=== PATIENT | male | born 1970 | race African-American/Black ===

== ENCOUNTER 2017-01-24 10:19 | Emergency (ER) | payer SELFPAY ==
[2017-01-24] MEDS ORDERED: CLONIDINE HCL 0.2 MG TABLET PO ONE (11:01)
--- NOTE | 2017-01-24 11:03 | ER Document Report ---
ED Medical Screen (RME) - General Mode of Arrival: Ambulatory Information source: Patient TRAVEL OUTSIDE OF THE [place] IN LAST 30 DAYS: No - HPI Patient complains to provider of: L arm pain Onset: This morning - pt with onset of L arm pain today (shoulder and elbow) without h/o trauma. Also BP elevated in traige <DAVID MCPHERSON - Last Filed: 01/24/17 11:02> <MONAE GUALLPA - Last Filed: 01/24/17 12:32> - General Chief Complaint: Arm Pain Stated Complaint: LEFT SHOULDER PAIN Time Seen by Provider: 01/24/17 11:00 - Related Data Allergies/Adverse Reactions: No Known Allergies Allergy (Verified 01/24/17 10:23) Past Medical History - Social History Chew tobacco use (# tins/day): No Frequency of alcohol use: 6 pk weekly Drug Abuse: None - Past Medical History Cardiac Medical History: Reports: Hx Hypertension - out of meds Renal/ Medical History: Denies: Hx Peritoneal Dialysis Musculoskeltal Medical History: Reports Hx Gout - Immunizations Immunizations up to date: No Hx Diphtheria, Pertussis, Tetanus Vaccination: No - <5 yrs <DAVID MCPHERSON - Last Filed: 01/24/17 11:02> - General Information source: Patient <MONAE GUALLPA - Last Filed: 01/24/17 12:32> Course - Laboratory Result Diagrams: 01/24/17 11:20 01/24/17 11:20 - EKG Interpretation by [facility] EKG shows normal: Sinus rhythm <MONAE GUALLPA - Last Filed: 01/24/17 12:32> - Vital Signs Vital signs: Temp Pulse Resp BP Pulse Ox 98.1 F 81 16 170/110 H 97 01/24/17 10:24 01/24/17 10:59 01/24/17 10:24 01/24/17 10:59 01/24/17 10:59 - Laboratory Laboratory results interpreted by me: 01/24/17 01/24/17 11:20 11:20 Hgb 13.2 L Creatine Kinase 230 H
[2017-01-24 11:38] LABS: ABSOLUTE BASOPHILS # (AUTO) 0.1 10^3/uL (0.0-0.2); ABSOLUTE EOSINOPHILS # (AUTO) 0.3 10^3/uL (0.0-0.6); ABSOLUTE LYMPHOCYTES (AUTO) 2.5 10^3/uL (0.5-4.7); ABSOLUTE MONOCYTES (AUTO) 0.6 10^3/uL (0.1-1.4); ABSOLUTE NEUT (AUTO) 4.9 10^3/uL (1.7-8.2); BASOPHILS % (AUTO) 1.3 % (0-2); HEMATOCRIT 38.5 % (37.9-51.0); HEMOGLOBIN 13.2 g/dL (13.5-17.0); HGB HCT DIFFERENCE 1.1; LYMPHOCYTES % (AUTO) 30.1 % (13-45); MEAN CORPUSCULAR HEMOGLOBIN 29.9 pg (27.0-33.4); MEAN CORPUSCULAR HGB CONC 34.3 g/dL (32.0-36.0); MEAN CORPUSCULAR VOLUME 87 fl (80-97); MONOCYTES % (AUTO) 6.8 % (3-13); RED BLOOD COUNT 4.41 10^6/uL (4.35-5.55); RED CELL DISTRIBUTION WIDTH 13.3 % (11.5-14.0); SEGMENTED NEUTROPHILS % (AUTO) 58.8 % (42-78); WHITE BLOOD COUNT 8.3 10^3/uL (4.0-10.5)
[2017-01-24 12:01] LABS: ALANINE AMINOTRANSFERASE 41 U/L (21-72); ALBUMIN 4.1 g/dL (3.5-5.0); ALKALINE PHOSPHATASE 102 U/L (38-126); ANION GAP 16 (5-19); ASPARTATE AMINO TRANSFERASE 32 U/L (17-59); BILIRUBIN,DIRECT 0.3 mg/dL (0.0-0.4); BILIRUBIN,TOTAL 0.4 mg/dL (0.2-1.3); BLOOD UREA NITROGEN 14 mg/dL (7-20); CALCIUM 9.9 mg/dL (8.4-10.2); CARBON DIOXIDE 23 mmol/L (22-30); CHLORIDE 106 mmol/L (98-107); CREATINE KINASE 230 U/L (55-170); CREATININE RESULT 1.01 mg/dL (0.52-1.25); GLUCOSE 82 mg/dL (75-110); POTASSIUM 3.6 mmol/L (3.6-5.0); SODIUM 144.8 mmol/L (137-145); TOTAL PROTEIN 7.5 g/dL (6.3-8.2)
[2017-01-24 12:13] LABS: CREATINE KINASE MB 1.05 ng/mL (<4.55)
[2017-01-24 12:14] LABS: TROPONIN I < 0.012 ng/mL
[2017-01-24] MEDS ORDERED: OXYCODONE-ACETAMINOPHEN 5-325 MG TABLET PO ONE (12:24)
--- NOTE | 2017-01-24 12:51 | ER Document Report ---
ED General - General Chief Complaint: Arm Pain Stated Complaint: LEFT SHOULDER PAIN Time Seen by Provider: 01/24/17 11:00 Mode of Arrival: Ambulatory Notes: Patient presents to emergency department with complaints of left elbow pain and swelling with pain that radiates up to his shoulder. Patient reports pain started approximately 2 weeks ago. Denies trauma. He reports he noted pain radiating up to his shoulder approximately 1-1/2 weeks ago. Reports history of gout. Denies other symptoms such as fever vomiting diarrhea. Denies chest pain shortness of breath. 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 Has been having to use his right hand more. TRAVEL OUTSIDE OF THE [place] IN LAST 30 DAYS: No - HPI Onset: Other Onset/Duration: Persistent Quality of pain: Achy Severity: Moderate Pain Level: 3 Associated symptoms: None Exacerbated by: Movement Relieved by: Denies Similar symptoms previously: No Recently seen / treated by doctor: No - Related Data Allergies/Adverse Reactions: No Known Allergies Allergy (Verified 01/24/17 10:23) Past Medical History - General Information source: Patient - Social History Smoking Status: Current Every Day Smoker Chew tobacco use (# tins/day): No Frequency of alcohol use: 6 pk weekly Drug Abuse: None Occupation: [employer] Lives with: Family Family History: None Patient has suicidal ideation: No Patient has homicidal ideation: No - Past Medical History Cardiac Medical History: Reports: Hx Hypertension - out of meds Renal/ Medical History: Denies: Hx Peritoneal Dialysis Musculoskeltal Medical History: Reports Hx Gout Surgical Hx: Negative - Immunizations Immunizations up to date: No Hx Diphtheria, Pertussis, Tetanus Vaccination: No - <5 yrs Review of Systems - Review of Systems Notes: Review HPI for review of systems., All other systems negative Physical Exam - Vital signs Vitals: Temp Pulse Resp BP Pulse Ox 98.1 F 90 16 175/104 H 96 01/24/17 10:24 01/24/17 10:24 01/24/17 10:24 01/24/17 10:24 01/24/17 10:24 - Notes Notes: PHYSICAL EXAMINATION: GENERAL: Well-appearing and in no acute distress HEAD: Atraumatic, normocephalic. EYES: Pupils equal round and reactive to light, extraocular movements intact, sclera anicteric, conjunctiva are normal. ENT: nares patent, oropharynx clear without exudates. Moist mucous membranes. NECK: Normal range of motion, supple without lymphadenopathy LUNGS: CTAB and equal. No wheezes rales or rhonchi. HEART: Regular rate and rhythm without murmurs ABDOMEN: Soft, no tenderness. No guarding, no rebound EXTREMITIES: c/o pain when raising his left arm above his shoulder, c/o left elbow ttp, elbow slightly swollen, slight erythema, no warmth, no pustule NEUROLOGICAL: Cranial nerves grossly intact. Normal sensory/motor exams. PSYCH: Normal mood, normal affect. SKIN: Warm, Dry, normal turgor, no rashes or lesions noted Course - Re-evaluation Re-evalutation: 01/24/17 12:54 Labs unremarkable patient is not having any type of chest pain or shortness of breath EKG shows sinus rhythm. Will do elbow xray and provide pain medication. Recheck BP. Consulted dr pryor per [facility] guidelines 01/24/17 13:37 X-ray notes elbow effusion, pt instructed on effusion History of gout. Will treat conservatively patient instructed on meds and to return for signs or symptoms of septic joint patient was educated on this. - Vital Signs Vital signs: Temp Pulse Resp BP Pulse Ox 97.8 F 64 16 152/103 H 100 01/24/17 13:36 01/24/17 13:36 01/24/17 10:24 01/24/17 13:36 01/24/17 13:36 - Laboratory Result Diagrams: 01/24/17 11:20 01/24/17 11:20 Laboratory results interpreted by me: 01/24/17 01/24/17 11:20 11:20 Hgb 13.2 L Creatine Kinase 230 H - Diagnostic Test Radiology reviewed: Image reviewed, Reports reviewed - Diagnostic report text EXAM DESCRIPTION: ELBOW LEFT OVER 2 VIEWS COMPLETED DATE/TIME: 01/24/2017 12: 53 pm REASON FOR STUDY: elbow pain COMPARISON: None. NUMBER OF VIEWS: Four views. TECHNIQUE: AP, lateral, and both oblique radiographic images acquired of the left elbow. LIMITATIONS: None. FINDINGS: MINERALIZATION: Normal. BONES: No acute fracture or dislocation. No worrisome bone lesions. JOINT: Mild elevation of the ventral and dorsal fat pads worrisome for elbow joint effusion SOFT TISSUES: There is diffuse dorsal soft tissue swelling over the elbow without radiopaque foreign body or soft tissue gas OTHER: No other significant finding. IMPRESSION: No fracture Small elbow joint effusion Diffuse dorsal soft tissue swelling without radiopaque foreign body or soft tissue gas Procedures - Immobilization Left Elbow Immobilizer type: Sling Performed by: DANIELLA escoto Post-Proc Neuro Vasc Exam: Unchanged from pre-exam Discharge - Discharge Clinical Impression: Pain in left elbow, Effusion of elbow joint, left, History of gout Condition: Stable Disposition: HOME, SELF-CARE Instructions: Elbow Effusion ([facility]), Oral Narcotic Medication ([facility]), Sling as Treatment ([facility]), Anti-Inflammatory Medication ([facility]) Additional Instructions: *You have been evaluated for elbow pain, elbow effusion, elevated blood pressure reading, history of gout *Monitor your elbow for signs of infection, increased pain, redness, swelling *Maintain sling for three days *Rest/Ice/Elevate *Follow up with your primary care provider for evaluation within one week *Follow up with orthopedics within one week-call for an appointment *Take medication as prescribed *Return to ED for worsening condition, changes, needs Monitor your blood pressure. Your blood pressure was elevated today. This may be because you were anxious, in pain or because you need medication. It is important to follow up with your primary care provider for full evaluation. Prescriptions: Indomethacin [Indocin 50 mg Capsule] 50 mg PO TID #30 capsule Oxycodone HCl/Acetaminophen [Percocet 5-325 mg Tablet] 1 - 2 tab PO ASDIR PRN # 15 tablet PRN Reason: Forms: Elevated Blood Pressure, Return to Work
--- NOTE | 2017-01-24 13:20 | RADIOLOGY REPORT (SQ) ---
EXAM DESCRIPTION: ELBOW LEFT OVER 2 VIEWS COMPLETED DATE/TIME: 01/24/2017 12:53 pm REASON FOR STUDY: elbow pain COMPARISON: None. NUMBER OF VIEWS: Four views. TECHNIQUE: AP, lateral, and both oblique radiographic images acquired of the left elbow. LIMITATIONS: None. FINDINGS: MINERALIZATION: Normal. BONES: No acute fracture or dislocation. No worrisome bone lesions. JOINT: Mild elevation of the ventral and dorsal fat pads worrisome for elbow joint effusion SOFT TISSUES: There is diffuse dorsal soft tissue swelling over the elbow without radiopaque foreign body or soft tissue gas OTHER: No other significant finding. IMPRESSION: No fracture Small elbow joint effusion Diffuse dorsal soft tissue swelling without radiopaque foreign body or soft tissue gas TECHNICAL DOCUMENTATION: JOB ID: [id number] [employer]- All Rights Reserved
[2017-01-24 13:53] VITALS: BP 152/103
--- NOTE | 2017-01-25 09:23 | EKG REPORT ---
SEVERITY:- ABNORMAL ECG - SINUS RHYTHM PROBABLE LEFT ATRIAL ABNORMALITY LEFT VENTRICULAR HYPERTROPHY : Confirmed by: Joel Lazcano 25-Jan-2017 09:22:39
== END 2017-01-24 13:54 | disposition home or self-care (01) ==
LOC: ER 10:19
DX: M25.512 Pain in left shoulder (principal); M25.422 Effusion, left elbow; M25.522 Pain in left elbow; M79.89 Other specified soft tissue disorders; F17.200 Nicotine dependence, unspecified, uncomplicated; M10.9 Gout, unspecified
CPT/HCPCS: 36415; 80053; 82550; 82553; 84484; 85025; 93005; 93010; 99284

== ENCOUNTER 2017-05-18 09:56 | Emergency (ER) | payer SELFPAY ==
[2017-05-18 10:04] VITALS: BP 177/110
[2017-05-18] MEDS ORDERED: OXYCODONE-ACETAMINOPHEN 5-325 MG TABLET PO ONE (10:29)
[2017-05-18] MEDS ORDERED: INDOMETHACIN 50 MG CAPSULE PO ONE (10:29)
--- NOTE | 2017-05-18 10:32 | ER Document Report ---
HPI - HPI Patient complains to provider of: Gout flareup Onset: Other - 10 days Onset/Duration: Persistent Quality of pain: Achy, Sharp Pain Level: 4 Context: Patient states that his gout has been flaring up for the past 10 days. Patient states he gets gout flareups every few months. Patient denies any injury to the foot or any fever. Associated Symptoms: Other - Right foot pain. denies: Fever Exacerbated by: Standing, Movement, Walking Relieved by: Denies Similar symptoms previously: Yes Recently seen / treated by doctor: No - ROS ROS below otherwise negative: Yes Systems Reviewed and Negative: Yes All other systems reviewed and negative - CONSTITUTIONAL Constitutional: DENIES: Fever, Chills - NEURO Neurology: DENIES: Weakness - MUSCULOSKELETAL Musculoskeletal: REPORTS: Extremity pain, Swelling - DERM Skin Color: Erythema Skin Problems: None Past Medical History - General Information source: Patient - Social History Smoking Status: Current Every Day Smoker Frequency of alcohol use: None Drug Abuse: None Family History: None - Past Medical History Cardiac Medical History: Denies: Hx Hypertension Renal/ Medical History: Denies: Hx Peritoneal Dialysis Musculoskeltal Medical History: Reports Hx Gout Surgical Hx: Negative - Immunizations Immunizations up to date: No Hx Diphtheria, Pertussis, Tetanus Vaccination: No - <5 yrs Vertical Provider Document - CONSTITUTIONAL Agree With Documented VS: Yes Exam Limitations: No Limitations General Appearance: WD/WN, No Apparent Distress - INFECTION CONTROL TRAVEL OUTSIDE OF THE [place] IN LAST 30 DAYS: No - HEENT HEENT: Atraumatic, Normocephalic - NECK Neck: Normal Inspection - RESPIRATORY Respiratory: Breath Sounds Normal, No Respiratory Distress O2 Sat by Pulse Oximetry: 97 - CARDIOVASCULAR Cardiovascular: Regular Rate, Regular Rhythm, No Murmur Pulses: Normal: Dorsalis pedis - MUSCULOSKELETAL/EXTREMETIES Musculoskeletal/Extremeties: MAEW, FROM, Tender - Right midfoot tenderness with overlying erythema and 1+ edema, Edema - NEURO Level of Consciousness: Awake, Alert, Appropriate Motor/Sensory: No Motor Deficit - DERM Integumentary: Warm, Dry, No Rash Course - Re-evaluation Re-evalutation: 05/18/17 10:30 The patient has been informed that they may have pre-hypertension or hypertension based on a blood pressure reading in the emergency department. I recommend that patient call the primary care provider listed on their discharge instructions or a physician of their choice by this week to arrange follow-up for further evaluation of possible pre-hypertension or hypertension. - Vital Signs Vital signs: Temp Pulse Resp BP Pulse Ox 98.4 F 79 20 177/110 H 97 05/18/17 10:02 05/18/17 10:02 05/18/17 10:02 05/18/17 10:02 05/18/17 10:02 Discharge - Discharge Clinical Impression: Elevated blood pressure reading Gout attack Qualifiers: Gout site: foot Gout etiology: unspecified cause Laterality: right Qualified Code(s): M10.9 - Gout, unspecified Condition: Stable Disposition: HOME, SELF-CARE Instructions: Anti-Inflammatory Medication ([facility]), Gout ([facility]), Gout Diet ([facility]), Oral Narcotic Medication ([facility]) Additional Instructions: Return immediately for any new or worsening symptoms Followup with your primary care provider, call tomorrow to make a followup appointment Prescriptions: Indomethacin [Indocin 50 Mg Capsule] 50 mg PO TID PRN #21 capsule PRN Reason: Oxycodone HCl/Acetaminophen [Percocet 5-325 mg Tablet] 1 tab PO ASDIR PRN #15 tablet PRN Reason: Forms: Elevated Blood Pressure Referrals: [facility] [Provider Group] - Follow up as needed [facility] [Provider Group] - Follow up tomorrow
== END 2017-05-18 10:52 | disposition home or self-care (01) ==
LOC: ER 09:56
DX: M10.9 Gout, unspecified (principal); R03.0 Elevated blood-pressure reading, without diagnosis of hypertension; F17.200 Nicotine dependence, unspecified, uncomplicated
CPT/HCPCS: 99283; J3490

== ENCOUNTER 2018-05-21 10:14 | Emergency (ER) | payer SELFPAY ==
[2018-05-21 10:21] VITALS: BP 184/106
--- NOTE | 2018-05-21 10:45 | ER Document Report ---
ED Extremity Problem, Upper - General Chief Complaint: Shoulder Pain Stated Complaint: JOINT PAIN Time Seen by Provider: 05/21/18 10:38 Information source: Patient Notes: Patient is a 48-year-old male comes emergency room complaining of an acute gout flareup. Patient states his been trying to deal with over the past 2 weeks but is getting worse. It started in his right knee and is swelling is gone per much to all of his extremities and then most have receded again with the exception of the right knee. He does have some swelling in the left hand and wrist area. 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 On the right knee he denies any history of trauma. He denies any other medical problems. TRAVEL OUTSIDE OF THE [place] IN LAST 30 DAYS: No - HPI Patient complains to provider of: Pain, Swelling, Right, Other - Knee. No: Injury Onset: Other - 3 weeks Recent injury: No Where: Home, Work Quality of pain: Sharp, Throbbing Severity of pain: Moderate, Still present Associated symptoms: None Exacerbated by: Movement, Exertion Relieved by: Nothing Similar symptoms previously: Yes Recently seen / treated by doctor: No - Related Data Allergies/Adverse Reactions: No Known Allergies Allergy (Verified 05/21/18 10:16) Past Medical History - General Information source: Patient - Social History Smoking Status: Current Every Day Smoker Cigarette use (# per day): Yes - 3 cigarettes Chew tobacco use (# tins/day): No Smoking Education Provided: Yes Frequency of alcohol use: Rare Drug Abuse: None 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 Lives with: Family Family History: None, Reviewed & Not Pertinent - Past Medical History Cardiac Medical History: Denies: Hx Hypertension Renal/ Medical History: Denies: Hx Peritoneal Dialysis Musculoskeletal Medical History: Reports Hx Gout - Immunizations Immunizations up to date: No Hx Diphtheria, Pertussis, Tetanus Vaccination: No - <5 yrs Review of Systems - Review of Systems Constitutional: No symptoms reported EENT: No symptoms reported Cardiovascular: No symptoms reported Respiratory: No symptoms reported Gastrointestinal: No symptoms reported Genitourinary: No symptoms reported Male Genitourinary: No symptoms reported Musculoskeletal: Gout, Joint pain, Joint swelling, Muscle pain. denies: Ankle swelling Skin: No symptoms reported Hematologic/Lymphatic: No symptoms reported Neurological/Psychological: No symptoms reported -: Yes All other systems reviewed and negative Physical Exam - Vital signs Vitals: Temp Pulse Resp BP Pulse Ox 98.7 F 78 16 184/106 H 96 05/21/18 10:18 05/21/18 10:18 05/21/18 10:18 05/21/18 10:18 05/21/18 10:18 Interpretation: Hypertensive - Notes Notes: Well-nourished well-developed 48-year-old male who appears in little discomfort. - General General appearance: Alert - HEENT Head: Normocephalic, Atraumatic Eyes: Normal - Respiratory Respiratory status: No respiratory distress Chest status: Nontender Breath sounds: Normal. No: Rales, Rhonchi, Stridor, Wheezing Chest palpation: Normal - Cardiovascular Rhythm: Regular Heart sounds: Normal auscultation Murmur: No - Extremities General upper extremity: Tender, Edema, Normal strength, Normal temperature, Other - Examination patient's left upper arm shows some mild swelling mostly in the hand and wrist area forearm and upper arm are spared. Is little puffy but not real edematous. There are good pulses on the radial and ulnar. Good cap refill in the nailbeds.. No: Normal ROM General lower extremity: Tender, Edema, Normal strength, Normal weight bearing. No: Normal inspection, Nontender, Normal ROM, Normal temperature, Kandy's sign Wrist: Tender, Other - Just some mild swelling as described above in the upper extremity area.. No: Normal, Nontender, Abrasion, Axial load of thumb pain, Deformity, Dislocation, Ecchymosis, Instability, Limited ROM, Navicular tenderness Hand: Tender, Swelling, Other - He had just some minor edema and puffiness as described in the upper extremity noted above.. No: Abrasion, Deformity, Dislocation, Instability, No evidence of human bite, No evidence of FB, Tendon deficit Knee: Tender, Drawer's test instability, Joint effusion, Pain with ROM, Patellar tendon intact, Tender joint line, Other - Examination of the right knee is impressive for moderate amount of suprapatellar effusion. Patient has patellar that floats more than is stable at this time. Patient has good popliteal pulse. Good pulses distally in the foot. He has a positive dorsalis pedal pulse and 2 posterior tibial pulses are normal. Flexion-extension of the foot is normal. Extension of the knee is not quite to max. Ambulates without difficulty. Mild warmth to touch as compared to the left knee.. No: Normal, Nontender, Ecchymosis, Instability, Laceration, Laxity with valgus stress, Laxity with varus stress, Popliteal fossa tender - Skin Skin Temperature: Warm Skin Color: Erythema, Other - Only erythema discomfort is around the knee were swollen. Course - Re-evaluation Re-evalutation: 05/21/18 10:54 Patient's right knee is swollen pretty extensively although it is not a presentation of a compartment syndrome type. I have discussed in length with patient that if the Indocin does not work he probably should follow-up with orthopedist. I have explained to him that this could be drained however given that ER is not the best place to drain and he has not having any deficits at this time no sign of any kind of compartment syndrome that is all on the superior patellar effusion that he should at least Daquan wrap it to see if he can get some of that down. Ice is his best friend at this time. Given him the recommendation to go to orthopedist. I also instructed him that if he gets any bigger come back and we will tap it here in ER if we have to. He is agreement with this plan. - Vital Signs Vital signs: Temp Pulse Resp BP Pulse Ox 98.7 F 78 16 184/106 H 96 05/21/18 10:18 05/21/18 10:18 05/21/18 10:18 05/21/18 10:18 05/21/18 10:18 Discharge - Discharge Clinical Impression: Gout attack Qualifiers: Gout site: multiple sites Gout etiology: unspecified cause Qualified Code(s): M10.9 - Gout, unspecified Condition: Stable Disposition: HOME, SELF-CARE Instructions: Gout ([facility]), Gout Diet ([facility]) Additional Instructions: Home and rest. Ice to the area as we discussed. Also as we have discussed gout can be caused by any number of things. You probably should see a primary care physician and get extensively worked up to see if they can find a cause. Sometimes this is related to renal functions which your kidney functions and it is important you follow-up. If for any reason you cannot find a primary care provider within the next week or 2 please come back to ER we will run some labs on you. The knee is what I have indicated to you could probably be tapped today however do not like to do this in ER if we do not have to and years is not emergent at this time however if you can get see an orthopedic doctor and it is getting worse please come back and we will drain it. Prescriptions: Indomethacin 50 mg PO TID #30 capsule Referrals: ROSA ELENA COOPER MD [ACTIVE STAFF] - Follow up as needed
== END 2018-05-21 11:06 | disposition home or self-care (01) ==
LOC: ER 10:14
DX: M10.9 Gout, unspecified (principal); M25.561 Pain in right knee; F17.210 Nicotine dependence, cigarettes, uncomplicated
CPT/HCPCS: 99283

== ENCOUNTER 2020-02-12 11:31 | Inpatient (IN) | payer BC ==
--- NOTE | 2020-02-12 12:14 | ER Document Report ---
ED Medical Screen (RME) - General Chief Complaint: Foot Pain Stated Complaint: FOOT PAIN Time Seen by Provider: 02/12/20 12:08 Mode of Arrival: Ambulatory Information source: Patient Notes: HPI; 49-year-old male comes complaining of right foot pain for the past week. History of gout. Not on any gout maintenance medications. States has not been taking anything for the pain. Recently diagnosed with hypertension a month ago. Denies any chest pain, shortness of breath, difficulty breathing. PE: Alert and oriented x3. Lungs: Clear to auscultation without rales, rhonchi, wheezes. Heart: Regular rate and rhythm without murmurs, rubs, gallops. Patient's blood pressure elevated to 256/122. Unable to do complete physical exam in triage. I have greeted and performed a rapid initial assessment of this patient. A comprehensive ED assessment and evaluation of the patient, analysis of test results and completion of the medical decision making process will be conducted by additional ED providers. I have specifically instructed the patient or family members with the patient to immediately return to any nursing staff should anything change in the patient's condition or with their chief complaint. TRAVEL OUTSIDE OF THE [place] IN LAST 30 DAYS: No - Related Data Allergies/Adverse Reactions: No Known Allergies Allergy (Verified 02/12/20 12:08) Home Medications: bp medication Past Medical History - Social History Chew tobacco use (# tins/day): No Frequency of alcohol use: Social Drug Abuse: None - Past Medical History Cardiac Medical History: Denies: Hx Hypertension Renal/ Medical History: Denies: Hx Peritoneal Dialysis Musculoskeltal Medical History: Reports Hx Gout - Immunizations Immunizations up to date: No Hx Diphtheria, Pertussis, Tetanus Vaccination: No - <5 yrs Physical Exam - Vital signs Vitals: Temp Pulse Resp BP Pulse Ox 98.8 F 90 16 256/122 H 98 02/12/20 11:38 02/12/20 11:38 02/12/20 11:38 02/12/20 11:38 02/12/20 11:38 Course - Vital Signs Vital signs: Temp Pulse Resp BP Pulse Ox 98.8 F 90 16 256/122 H 98 02/12/20 12:08 02/12/20 11:38 02/12/20 11:38 02/12/20 11:38 02/12/20 11:38
[2020-02-12 12:48] LABS: ABSOLUTE BASOPHILS # (AUTO) 0.1 10^3/uL (0.0-0.2); ABSOLUTE EOSINOPHILS # (AUTO) 0.2 10^3/uL (0.0-0.6); ABSOLUTE LYMPHOCYTES (AUTO) 2.6 10^3/uL (0.5-4.7); ABSOLUTE MONOCYTES (AUTO) 0.7 10^3/uL (0.1-1.4); ABSOLUTE NEUT (AUTO) 6.5 10^3/uL (1.7-8.2); BASOPHILS % (AUTO) 0.7 % (0-2); EOSINOPHILS % (AUTO) 1.9 % (0-6); HEMATOCRIT 34.9 % (37.9-51.0); HEMOGLOBIN 12.1 g/dL (13.5-17.0); LYMPHOCYTES % (AUTO) 25.6 % (13-45); MEAN CORPUSCULAR HEMOGLOBIN 29.2 pg (27.0-33.4); MEAN CORPUSCULAR HGB CONC 34.5 g/dL (32.0-36.0); MEAN CORPUSCULAR VOLUME 85 fl (80-97); MONOCYTES % (AUTO) 6.7 % (3-13); PLATELET COUNT 366 10^3/uL (150-450); RED BLOOD COUNT 4.13 10^6/uL (4.35-5.55); RED CELL DISTRIBUTION WIDTH 14.2 % (11.5-14.0); SEGMENTED NEUTROPHILS % (AUTO) 65.1 % (42-78); TOTAL CELLS COUNTED % (AUTO) 100 %
--- NOTE | 2020-02-12 12:50 | RADIOLOGY REPORT (SQ) ---
EXAM DESCRIPTION: CHEST 2 VIEWS IMAGES COMPLETED DATE/TIME: 02/12/2020 12:38 pm REASON FOR STUDY: hypertension COMPARISON: 09/06/2008 TECHNIQUE: Frontal and lateral radiographic views of the chest acquired. NUMBER OF VIEWS: Two view. LIMITATIONS: Mild RPO positioning. FINDINGS: LUNGS AND PLEURA: No pneumothorax. No consolidation or pleural effusion. MEDIASTINUM AND HILAR STRUCTURES: Stable. HEART AND VASCULAR STRUCTURES: Stable. BONES: No acute findings. HARDWARE: None in the chest. OTHER: No other significant finding. IMPRESSION: NO ACUTE FINDINGS. TECHNICAL DOCUMENTATION: JOB ID: [id number] [employer]- All Rights Reserved Reading location - IP/workstation name: [employer]
[2020-02-12 13:07] LABS: ALKALINE PHOSPHATASE 90 U/L (38-126); ANION GAP 7 (5-19); ASPARTATE AMINO TRANSFERASE 29 U/L (17-59); BILIRUBIN,TOTAL 0.3 mg/dL (0.2-1.3); BLOOD UREA NITROGEN 22 mg/dL (7-20); C-REACTIVE PROTEIN 19.7 mg/L (<10.0); CALCIUM 9.3 mg/dL (8.4-10.2); CARBON DIOXIDE 30 mmol/L (22-30); CHLORIDE 101 mmol/L (98-107); GLUCOSE 101 mg/dL (75-110); POTASSIUM 3.4 mmol/L (3.6-5.0); TOTAL PROTEIN 7.2 g/dL (6.3-8.2); URIC ACID 7.5 mg/dL (3.5-8.5)
[2020-02-12 13:23] LABS: ERYTHROCYTE SEDIMENTATION RATE 63 mm/hr (0-15)
--- NOTE | 2020-02-12 14:02 | ER Document Report ---
ED General - General Chief Complaint: Foot Pain Stated Complaint: FOOT PAIN Time Seen by Provider: 02/12/20 12:08 Mode of Arrival: Ambulatory Information source: Patient Notes: Patient is a 41-year-old male with history of hypertension and gout presenting to the emergency department with chief complaint of right foot pain. Patient believes he is having a gout flareup. He reports the pain has been present for 1 week. He is also complaining of having bright red blood in his stools which a re watery diarrhea for the last week. He is also complaining of increased urinary frequency with dark urine. He has not taken his blood pressure medications in 1 week. He usually takes amlodipine 10 mg daily. He reports that he smokes about 1/4 pack a day of cigarettes, he drinks 3 beers a day and does not use any illicit drugs. He has never had any surgeries. He denies any chest pain or shortness of breath. TRAVEL OUTSIDE OF THE [place] IN LAST 30 DAYS: No - Related Data Allergies/Adverse Reactions: No Known Allergies Allergy (Verified 02/12/20 12:08) Home Medications: bp medication Past Medical History - General Information source: Patient - Social History Smoking Status: Current Every Day Smoker Chew tobacco use (# tins/day): No Frequency of alcohol use: Social Drug Abuse: None Family History: None, Reviewed & Not Pertinent Patient has homicidal ideation: No - Past Medical History Cardiac Medical History: Denies: Hx Hypertension Renal/ Medical History: Denies: Hx Peritoneal Dialysis Musculoskeletal Medical History: Reports Hx Gout - Immunizations Immunizations up to date: No Hx Diphtheria, Pertussis, Tetanus Vaccination: No - <5 yrs Review of Systems - Review of Systems Constitutional: No symptoms reported EENT: No symptoms reported Cardiovascular: No symptoms reported Respiratory: No symptoms reported Gastrointestinal: No symptoms reported Genitourinary: No symptoms reported Male Genitourinary: No symptoms reported Musculoskeletal: Gout, Joint pain Hematologic/Lymphatic: No symptoms reported Neurological/Psychological: No symptoms reported Physical Exam - Vital signs Vitals: Temp Pulse Resp BP Pulse Ox 98.8 F 90 16 256/122 H 98 02/12/20 11:38 02/12/20 11:38 02/12/20 11:38 02/12/20 11:38 02/12/20 11:38 - Notes Notes: PHYSICAL EXAMINATION: GENERAL: Well-appearing, well-nourished and in no acute distress. HEAD: Atraumatic, normocephalic. EYES: Pupils equal round and reactive to light, extraocular movements intact, sclera anicteric, conjunctiva are normal. ENT: Nares patent, oropharynx clear without exudates. Moist mucous membranes. NECK: Normal range of motion, supple without lymphadenopathy LUNGS: Breath sounds clear to auscultation bilaterally and equal. No wheezes rales or rhonchi. HEART: Regular rate and rhythm without murmurs ABDOMEN: Soft, nontender, nondistended abdomen. No guarding, no rebound. No masses appreciated. Musculoskeletal: Tenderness to palpation to right great toe and right lateral ankle. No obvious swelling or erythema noted. Strong dorsalis pedis pulse, cap refill less than 3 seconds. NEUROLOGICAL: Cranial nerves grossly intact. Normal speech, normal gait. Normal sensory, motor exams PSYCH: Normal mood, normal affect. SKIN: Warm, Dry, normal turgor, no rashes or lesions noted. Course - Re-evaluation Re-evalutation: Laboratory 02/12/20 02/12/20 02/12/20 12:23 12:23 12:23 WBC 10.0 RBC 4.13 L Hgb 12.1 L Hct 34.9 L MCV 85 MCH 29.2 MCHC 34.5 RDW 14.2 H Plt Count 366 Lymph % (Auto) 25.6 [place] % (Auto) 6.7 Eos % (Auto) 1.9 Baso % (Auto) 0.7 Absolute Neuts (auto) 6.5 Absolute Lymphs (auto) 2.6 Absolute Monos (auto) 0.7 Absolute Eos (auto) 0.2 Absolute Basos (auto) 0.1 Seg Neutrophils % 65.1 Sodium 138.2 Potassium 3.4 L Chloride 101 Carbon Dioxide 30 Anion Gap 7 BUN 22 H Creatinine 1.75 H Est GFR ( Amer) 51 L Est GFR (MDRD) Non-Af 42 L Glucose 101 Uric Acid 7.5 Calcium 9.3 Total Bilirubin 0.3 Direct Bilirubin 0.0 Neonat Total Bilirubin Not Reportable Neonat Direct Bilirubin Not Reportable Neonat Indirect Bili Not Reportable AST 29 ALT 29 Alkaline Phosphatase 90 Troponin I 0.082 C-Reactive Protein 19.7 H Total Protein 7.2 Albumin 4.0 Chest X-Ray 02/12/20 12:12 IMPRESSION: NO ACUTE FINDINGS. Upon review of patient's labs ordered by triage patient has a creatinine of 1.75, he has no history of renal insufficiency. He also has an elevated troponin of 0.082. Again he denies any chest pain or shortness of breath. He also has a blood pressure taken by me of 218/130. He does have a history of hypertension and has been off of his medications for 1 week. He does not have a headache. His EKG shows a sinus rhythm, rate of 81, left axis deviation, LVH. This was compared with previous EKG, it is similar however there are some subtle changes however the previous EKG is from 01/24/2017. PLAN: Plan to obtain Hemoccult with rectal exam. Plan to administer IV medication for his hypertensive urgency. Will consult with attending physician regarding management of this patient. 02/12/20 15:12 Patient's blood pressure has not come down after the first dose of IV hydralazine 10 mg. Additional dose ordered. 02/12/20 16:33 Repeat troponin has slightly elevated from first, it is now 0.108. I went and spoke with patient, patient has absolutely no chest pain, he is resting comfortably in the bed. Called and spoke with on-call state wildlife officer Dr. Andrews. We discussed patient's case including his EKG, troponins and blood pressure. He agrees that patient can be admitted here for blood pressure control, trending his enzymes, and treating his acute kidney injury and then doing a stress test once patient's blood pressure is stable. 02/12/20 16:45 Patient accepted for admission by hospitalist. Spoke with Dr. Mejia. - Vital Signs Vital signs: Temp Pulse Resp BP Pulse Ox 98.8 F 90 13 186/114 H 99 02/12/20 12:08 02/12/20 11:38 02/12/20 16:01 02/12/20 16:00 02/12/20 16:01 - Laboratory Result Diagrams: 02/12/20 12:23 02/12/20 12:23 Laboratory results interpreted by me: 02/12/20 02/12/20 02/12/20 12:23 12:23 15:22 RBC 4.13 L Hgb 12.1 L Hct 34.9 L RDW 14.2 H ESR 63 H Potassium 3.4 L BUN 22 H Creatinine 1.75 H Est GFR ( Amer) 51 L Est GFR (MDRD) Non-Af 42 L C-Reactive Protein 19.7 H Urine Protein 100 H Discharge - Discharge Clinical Impression: Hypertensive emergency, GLYNN (acute kidney injury), Elevated troponin Gout Qualifiers: Gout site: foot Gout etiology: unspecified cause Chronicity: acute Laterality: right Qualified Code(s): M10.9 - Gout, unspecified Condition: Stable Disposition: ADMITTED INPATIENT Admitting Provider: Jackie (Hospitalist) Unit Admitted: [facility]
[2020-02-12] MEDS ORDERED: HYDRALAZINE HCL INJ/PF 20 MG/1 ML SDV IV ONE ×3 (14:03→17:02)
[2020-02-12] MEDS ORDERED: NORMAL SALINE 1000 ML 1,000 ML IV ONE (14:18)
[2020-02-12] MEDS ORDERED: OXYCODONE HCL IR 5 MG TABLET PO ONE (15:11)
--- NOTE | 2020-02-12 15:17 | EKG REPORT ---
SEVERITY:- ABNORMAL ECG - SINUS RHYTHM PROBABLE LEFT ATRIAL ABNORMALITY LEFT AXIS DEVIATION LVH WITH SECONDARY REPOLARIZATION ABNORMALITY ANTERIOR ST ELEVATION, PROBABLY DUE TO LVH : Confirmed by: Luc Candelaria MD 12-Feb-2020 15:15:54
[2020-02-12 15:55] LABS: APPEARANCE,URINE CLEAR; BILIRUBIN,URINE NEGATIVE (NEGATIVE); COLOR,URINE YELLOW; GLUCOSE, URINE NEGATIVE (NEGATIVE); KETONES,URINE NEGATIVE (NEGATIVE); LEUKOCYTE ESTERASE,URINE NEGATIVE (NEGATIVE); NITRITE,URINE NEGATIVE (NEGATIVE); PROTEIN,URINE 100 mg/dL (NEGATIVE); UROBILINOGEN,URINE NEGATIVE mg/dL (<2.0)
[2020-02-12] MEDS ORDERED: PANTOPRAZOLE SODIUM 40 MG TABLET.DR PO ONE (17:02)
[2020-02-12] MEDS ORDERED: AMLODIPINE BESYLATE 10 MG TABLET PO ONE (17:02)
[2020-02-12] MEDS ORDERED: ONDANSETRON HCL INJ/PF 4 MG/2 ML SDV IV PRN (17:04)
[2020-02-12] MEDS ORDERED: NITROGLYCERIN 2% OINTMENT 1 GM PACKET TP ONE (17:11)
[2020-02-12] MEDS ORDERED: LORAZEPAM INJ 2 MG/1 ML VIAL IV PRN (17:13)
[2020-02-12] MEDS ORDERED: NICOTINE 14 MG/24 HR PATCH.TD24 TD ONE (17:14)
--- NOTE | 2020-02-12 17:25 | PDOC H&P ---
History of Present Illness Admission Date/PCP: 02/12/2020 Patient complains of: Came in with complaints of gouty pain in the right foot History of Present Illness: TAYLOR RAMESH is a 49 year old male with history of hypertension noncompliant with medications, gout taking Tylenol came to the emergency room with complaints of right foot pain for the last 1 week. He is not sure the last time he took his medications. In the emergency room he also told the ER physician about passing dark-colored urine and passing slight blood in the stool. But he denied those problems to me. Denies any chest pain at all. Denies any nausea vomiting or abdominal pains. Denies any headaches dizzy spells. Denies any shortness of breath. Case was discussed by ER physician with Dr. Hamilton his recommenda tion is to place the patient in this hospital for further management. Patient received 2 doses of 10 mg of IV hydralazine in the emergency room latest systolic blood pressure is more than 200. I requested the nurse to give another 10 mg IV hydralazine. To give amlodipine 10 mg now and to place him on Nitropaste and started on IV hydralazine 10 mg every 6 as needed for systolic blood pressure more than 170. Started on IV morphine to help with the pain may be the pain is giving the high blood pressures. Discussed about the troponin with the patient he agreed to stay in the hospital for further management. Also told him if the troponin is trending up there is a possibility that he may be transferred to another facility. He agreed with the plan. He admitted to smoking weed but denies any drug use. He is a daily smoker. Also drinks sixpack every other day. Past Medical History Cardiac Medical History: Reports: Heart Murmur Denies: Hypertension Musculoskeltal Medical History: Reports: Gout Past Surgical History Past Surgical History: Reports: None Social History Smoking Status: Current Every Day Smoker Electronic Cigarette use?: No Frequency of Alcohol Use: Heavy Drugs: Marijuana - Advance Directive Resuscitation Status: Full Code Family History Family History: None, Reviewed & Not Pertinent Parental Family History Reviewed: Yes - Other has history of stroke and diabetes and she is on dialysis. Children Family History Reviewed: Yes Sibling(s) Family History Reviewed.: Yes Medication/Allergy Allergies/Adverse Reactions: No Known Allergies Allergy (Verified 02/12/20 12:08) Review of Systems Constitutional: ABSENT: fever(s), headache(s), night sweats, weakness Eyes: ABSENT: visual disturbances Ears: ABSENT: hearing changes Nose, Mouth, and Throat: ABSENT: sore throat Cardiovascular: ABSENT: dyspnea on exertion, orthropnea, palpitations Respiratory: ABSENT: cough, hemoptysis Gastrointestinal: PRESENT: diarrhea. ABSENT: melena, nausea Genitourinary: PRESENT: dysuria Musculoskeletal: ABSENT: joint swelling Integumentary: ABSENT: rash, wounds Neurological: ABSENT: abnormal gait, abnormal speech, confusion, dizziness, focal weakness, syncope Psychiatric: ABSENT: anxiety, depression, homidical ideation, suicidal ideation Physical Exam Vital Signs: Temp Pulse Resp BP Pulse Ox 98.8 F 90 13 186/114 H 99 02/12/20 12:08 02/12/20 11:38 02/12/20 16:01 02/12/20 16:00 02/12/20 16:01 Intake & Output 02/11/20 02/12/20 02/13/20 06:59 06:59 06:59 Intake Total 1000 Balance 1000 Weight 86.183 kg General appearance: PRESENT: no acute distress, cooperative, obese Head exam: PRESENT: atraumatic Eye exam: PRESENT: PERRLA Ear exam: PRESENT: normal external ear exam Mouth exam: PRESENT: neck supple Neck exam: ABSENT: carotid bruit, JVD, lymphadenopathy, thyromegaly Respiratory exam: PRESENT: clear to auscultation loan. ABSENT: rales, rhonchi, wheezes Cardiovascular exam: PRESENT: RRR. ABSENT: diastolic murmur, rubs, systolic murmur GI/Abdominal exam: PRESENT: normal bowel sounds, soft. ABSENT: distended, guarding, mass, organolmegaly, rebound, tenderness Rectal exam: PRESENT: deferred Extremities exam: PRESENT: full ROM, other - Right foot is extremely swollen and extremely tender to touch.. ABSENT: calf tenderness, clubbing, pedal edema Neurological exam: PRESENT: alert, awake, oriented to person, oriented to place, oriented to time, oriented to situation, CN II-XII grossly intact. ABSENT: motor sensory deficit Psychiatric exam: PRESENT: appropriate affect, normal mood. ABSENT: homicidal ideation, suicidal ideation Results Laboratory Results: 02/12/20 12:23 02/12/20 12:23 02/12/20 02/12/20 02/12/20 12:23 12:23 15:22 WBC 10.0 RBC 4.13 L Hgb 12.1 L Hct 34.9 L MCV 85 MCH 29.2 MCHC 34.5 RDW 14.2 H Plt Count 366 Seg Neutrophils % 65.1 Sodium 138.2 Potassium 3.4 L Chloride 101 Carbon Dioxide 30 Anion Gap 7 BUN 22 H Creatinine 1.75 H Est GFR ( Amer) 51 L Glucose 101 Uric Acid 7.5 Calcium 9.3 Total Bilirubin 0.3 AST 29 Alkaline Phosphatase 90 C-Reactive Protein 19.7 H Total Protein 7.2 Albumin 4.0 Urine Color YELLOW Urine Appearance CLEAR Urine pH 7.0 Ur Specific [place] 1.010 Urine Protein 100 H Urine Glucose (UA) NEGATIVE Urine Ketones NEGATIVE Urine Blood NEGATIVE Urine Nitrite NEGATIVE Ur Leukocyte Esterase NEGATIVE Urine WBC (Auto) 1 Urine RBC (Auto) 3 02/12/20 02/12/20 12:23 15:36 Troponin I 0.082 0.108 Impressions: Chest X-Ray 02/12/20 12:12 IMPRESSION: NO ACUTE FINDINGS. Assessment and Plan - Diagnosis (1) Hypertensive emergency Is this a current diagnosis for this admission?: Yes Plan: 02/12/2020-patient is going to be admitted to [facility] as an inpatient. Started on low-sodium diet, start IV hydralazine 10 mg every 6 hours as needed for systolic blood pressure more than 172 give amlodipine 10 mg now and started Nitropaste. If needed patient may need IV nitro to decrease the blood pressures. GI prophylaxis. And patient was started on full dose of Lovenox because of slightly elevated troponins. The goal is gradually bring the blood pressure to prevent complications. (2) Non-STEMI (non-ST elevated myocardial infarction) Is this a current diagnosis for this admission?: Yes Plan: Patient came in with nonspecific symptoms but troponins are slightly elevated may be secondary to GLYNN, may be secondary to hypertensive emergency. Initial troponin is 0.08, second troponin 0.1. To go aspirin 81 mg today and started on atorvastatin 10 mg p.o. nightly and started on full dose of Lovenox. ER physician discussed the case with Dr. Andrews is going to see the patient either tonight or tomorrow. Renal troponins are requested. Echocardiogram is requested for tomorrow. (3) Gout Qualifiers: Gout site: foot Gout etiology: unspecified cause Chronicity: acute Laterality: right Qualified Code(s): M10.9 - Gout, unspecified Is this a current diagnosis for this admission?: Yes Plan: 02/12/2020-patient complaining of severe right foot pain secondary to gouty arthritis start on IV morphine 2 mg every 4 as needed for pain. Uric acid levels are requested patient is also started on colchicine. Because of the GLYNN plan is not to give ibuprofen. (4) Tobacco abuse Is this a current diagnosis for this admission?: No Plan: 02/12/2020-patient has history of chronic daily day smoking smoking consult was provided started on nicotine patch.
[2020-02-12] MEDS ORDERED: CLONIDINE 0.2 MG/24 HR PATCH.TDWK TD ONE (17:28)
[2020-02-12] MEDS: HYDRALAZINE HCL INJ/PF 20 MG/1 ML SDV IV PRN (17:53)
[2020-02-12] MEDS: ENOXAPARIN SODIUM INJ 80 MG/0.8 ML DISP.SYRIN SUBCUT SCH (17:56)
[2020-02-12] MEDS ORDERED: HYDRALAZINE HCL 50 MG TABLET PO SCH (18:00)
[2020-02-12] MEDS: MORPHINE SULFATE 10 MG/ML INJ IV PRN ×2 (18:18→23:47)
[2020-02-12 18:51] LABS: URINE AMPHETAMINES SCREEN NEGATIVE; URINE BARBITURATES SCREEN NEGATIVE; URINE BENZODIAZEPINES SCREEN NEGATIVE; URINE COCAINE SCREEN NEGATIVE; URINE MARIJUANA (THC) SCREEN NEGATIVE; URINE METHADONE SCREEN NEGATIVE; URINE PHENCYCLIDINE SCREEN NEGATIVE
[2020-02-12 18:51] LABS: CHOLESTEROL 192.12 mg/dL (0-200); TRIGLYCERIDES 184 mg/dL (<150); URIC ACID 7.2 mg/dL (3.5-8.5)
[2020-02-12] MEDS ORDERED: CLONIDINE 0.2 MG/24 HR PATCH.TDWK ONE (18:58)
[2020-02-12 19:02] LABS: ALCOHOL < 10 mg/dL (NONE DETECTED); DIRECT LDL 129 mg/dL (<100); VLDL CHOLESTEROL 36.8 mg/dL (10-31)
[2020-02-12 19:06] LABS: CREATINE KINASE MB 1.42 ng/mL (<4.55); TROPONIN I 0.107 ng/mL
[2020-02-12] MEDS: COLCHICINE 0.6 MG TABLET PO PRN (21:12)
[2020-02-12] MEDS: ATORVASTATIN CALCIUM 10 MG TABLET PO SCH (21:54)
[2020-02-12] MEDS: NORMAL SALINE 1000 ML 1,000 ML IV PRN (23:56)
[2020-02-13] MEDS: HYDRALAZINE HCL INJ/PF 20 MG/1 ML SDV IV PRN ×2 (00:08→06:26)
[2020-02-13 06:02] LABS: APPEARANCE,URINE CLEAR; BILIRUBIN,URINE NEGATIVE (NEGATIVE); COLOR,URINE YELLOW; GLUCOSE, URINE 50 mg/dL (NEGATIVE); KETONES,URINE NEGATIVE (NEGATIVE); LEUKOCYTE ESTERASE,URINE NEGATIVE (NEGATIVE); NITRITE,URINE NEGATIVE (NEGATIVE); PROTEIN,URINE 100 mg/dL (NEGATIVE); URINE SPECIFIC GRAVITY 1.013; UROBILINOGEN,URINE NEGATIVE mg/dL (<2.0)
[2020-02-13] MEDS: MORPHINE SULFATE 10 MG/ML INJ IV PRN (06:18)
[2020-02-13] MEDS: ENOXAPARIN SODIUM INJ 80 MG/0.8 ML DISP.SYRIN SUBCUT SCH (06:18)
[2020-02-13] MEDS: COLCHICINE 0.6 MG TABLET PO PRN (06:28)
[2020-02-13 06:30] LABS: HEMATOCRIT 31.7 % (37.9-51.0); HEMOGLOBIN 10.6 g/dL (13.5-17.0); MEAN CORPUSCULAR HEMOGLOBIN 28.8 pg (27.0-33.4); MEAN CORPUSCULAR HGB CONC 33.5 g/dL (32.0-36.0); MEAN CORPUSCULAR VOLUME 86 fl (80-97); PLATELET COUNT 312 10^3/uL (150-450); RED BLOOD COUNT 3.69 10^6/uL (4.35-5.55); WHITE BLOOD COUNT 12.2 10^3/uL (4.0-10.5)
--- NOTE | 2020-02-13 06:59 | EKG REPORT ---
SEVERITY:- ABNORMAL ECG - SINUS RHYTHM PROBABLE LEFT ATRIAL ABNORMALITY LVH WITH SECONDARY REPOLARIZATION ABNORMALITY ANTERIOR ST ELEVATION, PROBABLY DUE TO LVH PROLONGED QT INTERVAL LEFT ANT FASCICULAR BLOCK : Confirmed by: Luc Candelaria MD 13-Feb-2020 06:58:56
[2020-02-13 07:08] LABS: ALBUMIN 3.5 g/dL (3.5-5.0); ALKALINE PHOSPHATASE 79 U/L (38-126); ANION GAP 7 (5-19); ASPARTATE AMINO TRANSFERASE 24 U/L (17-59); BILIRUBIN,TOTAL 0.6 mg/dL (0.2-1.3); BLOOD UREA NITROGEN 24 mg/dL (7-20); CALCIUM 8.8 mg/dL (8.4-10.2); CARBON DIOXIDE 27 mmol/L (22-30); CHLORIDE 101 mmol/L (98-107); GLUCOSE 110 mg/dL (75-110); POTASSIUM 3.5 mmol/L (3.6-5.0); TOTAL PROTEIN 6.4 g/dL (6.3-8.2)
--- NOTE | 2020-02-13 09:29 | PDOC CONSULTATION ---
Consultation Consult Date: 02/13/20 Provider Consulted: TYLER ASIF Consult reason:: Hypertensive emergency and elevated troponin History of Present Illness Admission Date/PCP: 02/12/20 17:42 History of Present Illness: TAYLOR RAMESH is a 49 year old male with history of hypertension noncompliant with medications, gout, CKD, smoker of 1 pack every 2 days for at least 10 years, without family history of premature coronary artery disease who was evaluated in the emergency room with complaints of right foot pain for the last 1 week as well as passing dark-colored urine and passing slight blood in the stool. In the emergency room he was found to have a very elevated blood pressure and his cardiac troponins eventually became positive. He was found to be anemic and with an elevated proBNP at 1910. This morning he feels well and denies cardiac complaints. He admits to a high sodium diet and noncompliance with medications. He also admits to multiple episodes of blood in the stool for quite some time however it had been intermittent therefore he never sought medical attention. He specifically denies chest pain, shortness of breath, lower extremity edema, palpitations, syncope and presyncope. His telemetry shows sinus tachycardia. Physical exam on 02/13/2020: GENERAL: Pleasant and conversational. Oriented x3 with normal mood. Not in acute distress. Well groomed and well developed. HEENT: Normocephalic, atraumatic. Pupils equal. Sclerae anicteric. Oropharynx moist. NECK: No JVD. No carotid bruits. LUNGS: Clear to auscultation bilaterally. Normal respiratory effort without the use of accessory muscles or intercostal retractions. CARDIOVASCULAR: Regular rate and rhythm, normal S1 and S2 without rubs, or gallops. PMI not displaced. 3 out of 6 holosystolic murmur at the apex. ABDOMEN: No masses or tenderness to palpation. No bruit. No splenomegaly or hepatomegaly. No abdominal aorta bruit noted. EXTREMITIES: No edema, no cyanosis, no clubbing. +2 pulses femoral and pedal pulses bilaterally. SKIN: No lesions or rashes. MUSCULOSKELETAL: No chest tenderness to palpation. NEUROLOGIC: Nonfocal. No gross sensory or motor deficits bilateral upper or lower extremities. Past Medical History Cardiac Medical History: Reports: Heart Murmur Denies: Hypertension Musculoskeltal Medical History: Reports: Gout Psychiatric Medical History: Denies: Depression Past Surgical History Past Surgical History: Reports: None Social History Smoking Status: Current Every Day Smoker Electronic Cigarette use?: No Frequency of Alcohol Use: Heavy Drugs: Marijuana - Advance Directive Resuscitation Status: Full Code Family History Family History: None, Reviewed & Not Pertinent Parental Family History Reviewed: Yes Children Family History Reviewed: Yes Sibling(s) Family History Reviewed.: Yes Medication/Allergy Home Medications: No Home Medications 02/13/20 Allergies/Adverse Reactions: No Known Allergies Allergy (Verified 02/12/20 12:08) Physical Exam Vital Signs: Temp Pulse Resp BP Pulse Ox 98.7 F 106 H 18 173/87 H 97 02/13/20 05:28 02/13/20 05:28 02/13/20 05:28 02/13/20 05:28 02/13/20 05:28 Intake & Output 02/11/20 02/12/20 02/13/20 06:59 06:59 06:59 Intake Total 1000 Output Total 0 Balance 1000 Weight 91.1 kg Results Laboratory Results: 02/13/20 05:14 02/12/20 02/12/20 02/12/20 12:23 12:23 15:22 WBC 10.0 RBC 4.13 L Hgb 12.1 L Hct 34.9 L MCV 85 MCH 29.2 MCHC 34.5 RDW 14.2 H Plt Count 366 Seg Neutrophils % 65.1 Sodium 138.2 Potassium 3.4 L Chloride 101 Carbon Dioxide 30 Anion Gap 7 BUN 22 H Creatinine 1.75 H Est GFR ( Amer) 51 L Glucose 101 Uric Acid 7.5 Calcium 9.3 Total Bilirubin 0.3 AST 29 Alkaline Phosphatase 90 C-Reactive Protein 19.7 H Total Protein 7.2 Albumin 4.0 Triglycerides Cholesterol LDL Cholesterol Direct VLDL Cholesterol HDL Cholesterol Urine Color YELLOW Urine Appearance CLEAR Urine pH 7.0 Ur Specific [place] 1.010 Urine Protein 100 H Urine Glucose (UA) NEGATIVE Urine Ketones NEGATIVE Urine Blood NEGATIVE Urine Nitrite NEGATIVE Ur Leukocyte Esterase NEGATIVE Urine WBC (Auto) 1 Urine RBC (Auto) 3 02/12/20 02/13/20 02/13/20 18:25 05:14 05:32 WBC 12.2 H RBC 3.69 L Hgb 10.6 L Hct 31.7 L MCV 86 MCH 28.8 MCHC 33.5 RDW 14.0 Plt Count 312 Seg Neutrophils % Sodium Potassium Chloride Carbon Dioxide Anion Gap BUN Creatinine Est GFR ( Amer) Glucose Uric Acid 7.2 Calcium Total Bilirubin AST Alkaline Phosphatase C-Reactive Protein Total Protein Albumin Triglycerides 184 H Cholesterol 192.12 LDL Cholesterol Direct 129 H VLDL Cholesterol 36.8 H HDL Cholesterol 41 Urine Color YELLOW Urine Appearance CLEAR Urine pH 6.0 Ur Specific [place] 1.013 Urine Protein 100 H Urine Glucose (UA) 50 H Urine Ketones NEGATIVE Urine Blood NEGATIVE Urine Nitrite NEGATIVE Ur Leukocyte Esterase NEGATIVE Urine WBC (Auto) 1 Urine RBC (Auto) 5 02/12/20 02/12/20 02/12/20 12:23 15:36 18:25 CK-MB (CK-2) 1.42 Troponin I 0.082 0.108 0.107 02/12/20 21:57 CK-MB (CK-2) Troponin I 0.146 Impressions: Chest X-Ray 02/12/20 12:12 IMPRESSION: NO ACUTE FINDINGS. 02/13/20 05:14 MCV 86 fl (80-97) 02/13/20 05:14 MCH 28.8 pg (27.0-33.4) 02/13/20 05:14 MCHC 33.5 g/dL (32.0-36.0) 02/13/20 05:14 RDW 14.0 % (11.5-14.0) 02/13/20 05:14 Seg Neutrophils % 65.1 % (42-78) 02/12/20 12:23 Chloride 101 mmol/L (98-107) 02/12/20 12:23 Carbon Dioxide 30 mmol/L (22-30) 02/12/20 12:23 Anion Gap 7 (5-19) 02/12/20 12:23 Est GFR ( Amer) 51 (>60) L 02/12/20 12:23 Glucose 101 mg/dL (75-110) 02/12/20 12:23 Uric Acid 7.2 mg/dL (3.5-8.5) 02/12/20 18:25 Calcium 9.3 mg/dL (8.4-10.2) 02/12/20 12:23 Total Bilirubin 0.3 mg/dL (0.2-1.3) 02/12/20 12:23 AST 29 U/L (17-59) 02/12/20 12:23 Alkaline Phosphatase 90 U/L (38-126) 02/12/20 12:23 C-Reactive Protein 19.7 mg/L (<10.0) H 02/12/20 12:23 Total Protein 7.2 g/dL (6.3-8.2) 02/12/20 12:23 Albumin 4.0 g/dL (3.5-5.0) 02/12/20 12:23 Triglycerides 184 mg/dL (<150) H 02/12/20 18:25 Cholesterol 192.12 mg/dL (0-200) 02/12/20 18:25 LDL Cholesterol Direct 129 mg/dL (<100) H 02/12/20 18:25 VLDL Cholesterol 36.8 mg/dL (10-31) H 02/12/20 18:25 HDL Cholesterol 41 mg/dL (>40) 02/12/20 18:25 Urine Color YELLOW 02/13/20 05:32 Urine Appearance CLEAR 02/13/20 05:32 Urine pH 6.0 (5.0-9.0) 02/13/20 05:32 Ur Specific [place] 1.013 02/13/20 05:32 Urine Protein 100 mg/dL (NEGATIVE) H 02/13/20 05:32 Urine Glucose (UA) 50 mg/dL (NEGATIVE) H 02/13/20 05:32 Urine Ketones NEGATIVE mg/dL (NEGATIVE) 02/13/20 05:32 Urine Blood NEGATIVE (NEGATIVE) 02/13/20 05:32 Urine Nitrite NEGATIVE (NEGATIVE) 02/13/20 05:32 Ur Leukocyte Esterase NEGATIVE (NEGATIVE) 02/13/20 05:32 Urine WBC (Auto) 1 /HPF 02/13/20 05:32 Urine RBC (Auto) 5 /HPF 02/13/20 05:32 02/12/20 02/12/20 02/12/20 12:23 15:36 18:25 CK-MB (CK-2) 1.42 Troponin I 0.082 0.108 0.107 02/12/20 21:57 CK-MB (CK-2) Troponin I 0.146 Current Medication List Generic Name Dose Route Start Last Admin Trade Name Freq PRN Reason Stop Dose Admin Amlodipine Besylate 10 mg 02/13/20 10:00 Norvasc 10 Mg Tablet PO 03/14/20 09:59 DAILY HARJEET Aspirin 81 mg 02/13/20 10:00 Aspirin 81 Mg Chewable Tablet PO 03/14/20 09:59 DAILY HARJEET Atorvastatin Calcium 5 mg 02/12/20 22:00 02/12/20 21:54 Lipitor 10 Mg Tablet PO 03/13/20 21:59 5 mg QHS HARJEET Administration Colchicine 0.6 mg 02/12/20 17:06 02/13/20 06:28 Colcrys 0.6 Mg Tablet PO 03/13/20 17:05 0.6 mg Q6HP PRN Administration FOR PAIN Enoxaparin Sodium 80 mg 02/12/20 18:00 02/13/20 06:18 Lovenox Inj 80 Mg/0.8 Ml Disp.Syrin SUBCUT 03/13/20 17:59 80 mg Q12A HARJEET Administration Hydralazine HCl 100 mg 02/12/20 18:00 02/12/20 17:49 Apresoline 50 Mg Tablet PO 03/13/20 17:59 100 mg TID HARJEET Administration Hydralazine HCl 10 mg 02/12/20 17:08 02/13/20 06:26 Apresoline Inj/Pf 20 Mg/1 Ml Sdv IV 03/13/20 17:07 10 mg Q6HP PRN Administration GIVE FOR SBP > [] Sodium Chloride 1,000 mls @ 100 mls/hr 02/12/20 17:02 02/12/20 23:56 Nacl 0.9% 1000 Ml Iv Soln IV 03/13/20 17:01 100 mls/hr CONTINUOUS PRN Administration THIS MED IS NOT "PRN" Lorazepam 1 mg 02/12/20 17:13 Ativan Inj 2 Mg/1 Ml Vial IV 02/19/20 17:12 Q6HP PRN ANXIETY Morphine Sulfate 2 mg 02/12/20 17:01 02/13/20 06:18 Morphine 10 Mg/Ml Inj IV 02/19/20 17:00 2 mg Q4HP PRN Administration FOR PAIN Ondansetron HCl 4 mg 02/12/20 17:04 Zofran Inj/Pf 4 Mg/2 Ml Sdv IV 03/13/20 17:14 Q4H PRN UNRESOLVED NAUSEA/VOMITING Pantoprazole Sodium 40 mg 02/13/20 10:[address] Tablet PO 03/14/20 09:59 DAILY HARJEET Sodium Chloride 2.5 ml 02/12/20 22:00 02/13/20 06:10 Saline Flush 2.5 Ml Monoject Prefil Syrin IV 03/13/20 21:59 Not Given Q8 HARJEET Discontinued Medications Generic Name Dose Route Start Last Admin Trade Name Deja PRN Reason Stop Dose Admin Amlodipine Besylate 10 mg 02/12/20 17:02 02/12/20 17:50 Norvasc 10 Mg Tablet PO 02/12/20 17:03 10 mg NOW ONE Administration Clonidine HCl 1 each 02/12/20 17:28 02/12/20 19:45 Catapres-Tts 2 (0.2 Mg/24 Hr) Transderm Ptch TD 02/12/20 17:29 1 each NOW ONE Administration Clonidine HCl Confirm 02/12/20 18:58 02/12/20 19:51 Catapres-Tts 2 (0.2 Mg/24 Hr) Transderm Ptch Administered 02/12/20 18:59 Not Given Dose 1 each .ROUTE .STK-MED ONE Hydralazine HCl 10 mg 02/12/20 14:03 02/12/20 14:22 Apresoline Inj/Pf 20 Mg/1 Ml Sdv IV 02/12/20 14:04 10 mg NOW ONE Administration Hydralazine HCl 10 mg 02/12/20 15:10 02/12/20 15:23 Apresoline Inj/Pf 20 Mg/1 Ml Sdv IV 02/12/20 15:11 10 mg NOW ONE Administration Hydralazine HCl 10 mg 02/12/20 17:02 02/12/20 17:59 Apresoline Inj/Pf 20 Mg/1 Ml Sdv IV 02/12/20 17:03 Not Given NOW ONE Sodium Chloride 1,000 mls @ 0 mls/hr 02/12/20 14:18 02/12/20 15:23 Nacl 0.9% 1000 Ml Iv Soln IV 02/12/20 14:19 Infused BOLUS ONE Infusion Wide Open Nicotine 1 each 02/12/20 17:14 02/12/20 18:00 Nicoderm 14 Mg/24 Hr Transdermal Patch TD 02/12/20 17:15 Not Given NOW ONE Nitroglycerin 1 gm 02/12/20 17:11 02/12/20 17:52 Nitrol 2% Ointment 1gm Packet TP 02/12/20 17:12 1 gm NOW ONE Administration Oxycodone HCl 5 mg 02/12/20 15:11 02/12/20 15:22 Oxy-Ir 5 Mg Tablet PO 02/12/20 15:12 5 mg NOW ONE Administration Pantoprazole Sodium 40 mg 02/12/20 17:02 02/12/20 17:[address] Tablet PO 02/12/20 17:03 40 mg NOW ONE Administration Assessment & Plan - Diagnosis (1) Hypertensive emergency Is this a current diagnosis for this admission?: Yes Plan: His blood pressure is improved although continues to be above his goal of 130/80 or below. We had a very long discussion including the importance of low-sodium diet, exercise and compliance with medications. His antihypertensive regimen is not ideal particularly with hydralazine which is known to cause rebound tachycardia. Unfortunately he has acute kidney injury therefore we will hold off on JOSE F inhibitor/ARB for now. Recommendations: -Discontinue hydralazine. -Start Coreg 12.5 mg twice daily. -Continue with Norvasc for now. -We will start JOSE F inhibitor or an ARB once his GLYNN is improved. (2) Type 2 myocardial infarction Plan: Secondary to a combination hypertensive emergency, anemia, tachycardia and CKD. The patient at this point does not require antiplatelet agents given that this is not a true acute coronary syndrome and he has a lower GI bleed with anemia. Recommendations: -Discontinue Lovenox. -Discontinue all antiplatelet agents. -Continue to trend enzymes. -Ischemic assessment once his anemia is resolved and his blood pressure is controlled. -Echocardiogram to assess for structural heart disease. (3) Tobacco abuse Is this a current diagnosis for this admission?: No Plan: The deliterius effects of tobacco use were discussed at length with the patient as well as the importance and my recommendation of quitting all tobacco products MISBAH. (4) Gout Qualifiers: Gout site: foot Gout etiology: unspecified cause Chronicity: acute Laterality: right Qualified Code(s): M10.9 - Gout, unspecified Is this a current diagnosis for this admission?: Yes Plan: Further management per primary team. (5) Anemia Plan: Secondary to a low GI bleed. Recommendations: -GI evaluation.
[2020-02-13] MEDS: PANTOPRAZOLE SODIUM 40 MG TABLET.DR PO SCH (09:36)
[2020-02-13] MEDS: AMLODIPINE BESYLATE 10 MG TABLET PO SCH (09:36)
[2020-02-13] MEDS: COLCHICINE 0.6 MG TABLET PO SCH ×2 (09:37→23:31)
--- NOTE | 2020-02-13 09:38 | PDOC PROGRESS REPORT ---
Subjective Progress Note for:: 02/13/20 Subjective:: 49 year old male with history of hypertension noncompliant with medications, gout taking Tylenol came to the emergency room with complaints of right foot pain for the last 1 week. He is not sure the last time he took his medications. In the emergency room he also told the ER physician about passing dark-colored urine and passing slight blood in the stool. But he denied those problems to me. Denies any chest pain at all. Denies any nausea vomiting or abdominal pains. Denies any headaches dizzy spells. Denies any shortness of breath. Case was discussed by ER physician with Dr. Hamilton his recommendation is to place the patient in this hospital for further management. Patient received 2 doses of 10 mg of IV hydralazine in the emergency room latest systolic blood pressure is more than 200. I requested the nurse to give another 10 mg IV hydralazine. To give amlodipine 10 mg now and to place him on Nitropaste and started on IV hydralazine 10 mg every 6 as needed for systolic blood pressure more than 170. Started on IV morphine to help with the pain may be the pain is giving the high blood pressures. Discussed about the troponin with the patient he agreed to stay in the hospital for further management. Also told him if the troponin is trending up there is a possibility that he may be transferred to another facility. He agreed with the plan. He admitted to smoking weed but denies any drug use. He is a daily smoker. Also drinks sixpack every other day. 02/13/2020-no acute events in the last 24 hours. Max is 99.5, WBC count is 12 ,000. Cardiology consult was done the impression is type II myocardial ischemia and recommendation is to discontinue treatment dose of Lovenox, start on DVT prophylaxis, and to continue to trend the troponins. The recommendation is also to discontinue hydralazine p.o. and to start the patient Coreg. Echocardiogram report is pending. Reason For Visit: HYPERTENSIVE EMERGENCY/NONSTEMI Physical Exam Vital Signs: Temp Pulse Resp BP Pulse Ox 99.5 F 102 H 16 153/77 H 99 02/13/20 07:20 02/13/20 07:20 02/13/20 07:20 02/13/20 07:20 02/13/20 07:20 Intake & Output 0602/13/20 02/14/20 06:59 06:59 06:59 Intake Total 1300 Output Total 400 Balance 900 Weight 91.1 kg General appearance: PRESENT: no acute distress, well-developed Head exam: PRESENT: atraumatic Eye exam: PRESENT: PERRLA Mouth exam: PRESENT: moist, neck supple, tongue midline Neck exam: ABSENT: carotid bruit, JVD, lymphadenopathy, thyromegaly Respiratory exam: PRESENT: decreased breath sounds Cardiovascular exam: PRESENT: RRR, systolic murmur GI/Abdominal exam: PRESENT: normal bowel sounds, soft. ABSENT: distended, guarding, mass, organolmegaly, rebound, tenderness Rectal exam: PRESENT: deferred Extremities exam: PRESENT: full ROM. ABSENT: calf tenderness, clubbing, pedal edema Neurological exam: PRESENT: alert, awake, oriented to person, oriented to place, oriented to time, oriented to situation, CN II-XII grossly intact. ABSENT: motor sensory deficit Psychiatric exam: PRESENT: appropriate affect, normal mood. ABSENT: homicidal ideation, suicidal ideation Results Laboratory Results: 02/13/20 05:14 02/13/20 05:14 02/12/20 02/12/20 02/12/20 12:23 12:23 15:22 WBC 10.0 RBC 4.13 L Hgb 12.1 L Hct 34.9 L MCV 85 MCH 29.2 MCHC 34.5 RDW 14.2 H Plt Count 366 Seg Neutrophils % 65.1 Sodium 138.2 Potassium 3.4 L Chloride 101 Carbon Dioxide 30 Anion Gap 7 BUN 22 H Creatinine 1.75 H Est GFR ( Amer) 51 L Glucose 101 Uric Acid 7.5 Calcium 9.3 Total Bilirubin 0.3 AST 29 Alkaline Phosphatase 90 C-Reactive Protein 19.7 H Total Protein 7.2 Albumin 4.0 Triglycerides Cholesterol LDL Cholesterol Direct VLDL Cholesterol HDL Cholesterol Urine Color YELLOW Urine Appearance CLEAR Urine pH 7.0 Ur Specific [place] 1.010 Urine Protein 100 H Urine Glucose (UA) NEGATIVE Urine Ketones NEGATIVE Urine Blood NEGATIVE Urine Nitrite NEGATIVE Ur Leukocyte Esterase NEGATIVE Urine WBC (Auto) 1 Urine RBC (Auto) 3 02/12/20 02/13/20 02/13/20 18:25 05:14 05:14 WBC 12.2 H RBC 3.69 L Hgb 10.6 L Hct 31.7 L MCV 86 MCH 28.8 MCHC 33.5 RDW 14.0 Plt Count 312 Seg Neutrophils % Sodium 135.4 L Potassium 3.5 L Chloride 101 Carbon Dioxide 27 Anion Gap 7 BUN 24 H Creatinine 1.83 H Est GFR ( Amer) 48 L Glucose 110 Uric Acid 7.2 Calcium 8.8 Total Bilirubin 0.6 AST 24 Alkaline Phosphatase 79 C-Reactive Protein Total Protein 6.4 Albumin 3.5 Triglycerides 184 H Cholesterol 192.12 LDL Cholesterol Direct 129 H VLDL Cholesterol 36.8 H HDL Cholesterol 41 Urine Color Urine Appearance Urine pH Ur Specific [place] Urine Protein Urine Glucose (UA) Urine Ketones Urine Blood Urine Nitrite Ur Leukocyte Esterase Urine WBC (Auto) Urine RBC (Auto) 02/13/20 05:32 WBC RBC Hgb Hct MCV MCH MCHC RDW Plt Count Seg Neutrophils % Sodium Potassium Chloride Carbon Dioxide Anion Gap BUN Creatinine Est GFR ( Amer) Glucose Uric Acid Calcium Total Bilirubin AST Alkaline Phosphatase C-Reactive Protein Total Protein Albumin Triglycerides Cholesterol LDL Cholesterol Direct VLDL Cholesterol HDL Cholesterol Urine Color YELLOW Urine Appearance CLEAR Urine pH 6.0 Ur Specific [place] 1.013 Urine Protein 100 H Urine Glucose (UA) 50 H Urine Ketones NEGATIVE Urine Blood NEGATIVE Urine Nitrite NEGATIVE Ur Leukocyte Esterase NEGATIVE Urine WBC (Auto) 1 Urine RBC (Auto) 5 02/12/20 02/12/20 02/12/20 12:23 15:36 18:25 CK-MB (CK-2) 1.42 Troponin I 0.082 0.108 0.107 NT-Pro-B Natriuret Pep 02/12/20 02/13/20 21:57 05:14 CK-MB (CK-2) Troponin I 0.146 NT-Pro-B Natriuret Pep 1910 H Impressions: Chest X-Ray 02/12/20 12:12 IMPRESSION: NO ACUTE FINDINGS. Assessment and Plan - Diagnosis (1) Hypertensive emergency Is this a current diagnosis for this admission?: Yes Plan: 02/12/2020-patient is going to be admitted to [facility] as an inpatient. Started on low-sodium diet, start IV hydralazine 10 mg every 6 hours as needed for systolic blood pressure more than 172 give amlodipine 10 mg now and started Nitropaste. If needed patient may need IV nitro to decrease the blood pressures. GI prophylaxis. And patient was started on full dose of Lovenox because of slightly elevated troponins. The goal is gradually bring the blood pressure to prevent complications. 02/13/2020-patient latest blood pressure is 153/77. As per cardiology recommendations patient was started on Coreg 12.5 mg p.o. daily, amlodipine 10 mg daily and IV hydralazine as needed basis. Unable to start on JOSE F or ARB because of the GLYNN. (2) Non-STEMI (non-ST elevated myocardial infarction) Is this a current diagnosis for this admission?: Yes Plan: Patient came in with nonspecific symptoms but troponins are slightly elevated may be secondary to GLYNN, may be secondary to hypertensive emergency. Initial troponin is 0.08, second troponin 0.1. To go aspirin 81 mg today and started on atorvastatin 10 mg p.o. nightly and started on full dose of Lovenox. ER physician discussed the case with Dr. Andrews is going to see the patient either tonight or tomorrow. Renal troponins are requested. Echocardiogram is requested for tomorrow. 02/13/2020-patient has type II myocardial ischemia latest troponin is 0.146. Repeat the troponins today. Echocardiogram report is pending patient denies any chest pains. Plan is to continue aspirin and atorvastatin. (3) Gout Qualifiers: Gout site: foot Gout etiology: unspecified cause Chronicity: acute Laterality: right Qualified Code(s): M10.9 - Gout, unspecified Is this a current diagnosis for this admission?: Yes Plan: 02/12/2020-patient complaining of severe right foot pain secondary to gouty arthritis start on IV morphine 2 mg every 4 as needed for pain. Uric acid levels are requested patient is also started on colchicine. Because of the GLYNN plan is not to give ibuprofen. 02/13/2020-as per the patient pain is much improved with pain medications are colchicine. Plan is to continue the present management. (4) Tobacco abuse Is this a current diagnosis for this admission?: No Plan: 02/12/2020-patient has history of chronic daily day smoking smoking consult was provided started on nicotine patch.
[2020-02-13] MEDS ORDERED: ASPIRIN 81 MG TABLET, CHEWABLE PO SCH (10:00)
[2020-02-13] MEDS ORDERED: HYDRALAZINE HCL INJ/PF 20 MG/1 ML SDV IV PRN (11:30)
[2020-02-13] MEDS: CARVEDILOL 12.5 MG TABLET PO SCH ×2 (14:23→23:30)
[2020-02-13] MEDS: HEPARIN SOD (PORCINE) 5,000 UNIT/ML 1 ML VIAL SUBCUT SCH ×2 (14:23→23:31)
[2020-02-13] MEDS: NORMAL SALINE 1000 ML 1,000 ML IV PRN (18:19)
--- NOTE | 2020-02-13 18:54 | XCELERA REPORT ---
[address] [address] Transthoracic Echocardiogram Report Name: TAYLOR RAMESH Age: 49 yrs Gender: Male : 1970 Patient Status: Inpatient Patient Location: [address] [place], [place] [id number] Study Date: 02/13/2020 09:43 AM Height: 72 in Weight: 190 lb BSA: 2.1 m2 Procedure: A complete two-dimensional transthoracic echocardiogram was performed (2D, M-mode, spectral and color flow Doppler). The study was technically good with many images being of high quality. Reason For Study: nonstemi Ordering Physician: ETHEL ATKINSON Performed By: Eunice Magana Interpretation Summary The left ventricle is grossly normal size. There is mild concentric left ventricular hypertrophy. The left ventricular ejection fraction is within normal limits. The Ejection Fraction estimate is 65-70%. Doppler measurements suggest pseudonormalized left ventricular relaxation, which is associated with grade II/IV or mild to moderate diastolic dysfunction. The left ventricular wall motion is normal. There is no thrombus. Mild LAE. Mild MR, trace to mild TR. No prior studies for comparison. MMode/2D Measurements & Calculations RVDd: 3.2 cm LVIDd: 4.9 cm FS: 40.8 % Ao root diam: 2.7 cm IVSd: 1.5 cm LVIDs: 2.9 cm EDV(Teich): 110.7 ml Ao root area: 5.6 cm2 LVPWd: 1.5 cm ESV(Teich): 31.6 ml EF(Teich): 71.5 % Doppler Measurements & Calculations MV E max archana: MV dec slope: Ao V2 max: LV V1 max P.4 cm/sec 941.2 cm/sec2 197.8 cm/sec 11.3 mmHg MV A max archana: MV dec time: 0.12 secAo max PG: LV V1 max: 77.0 cm/sec 15.7 mmHg 168.1 cm/sec MV E/A: 1.4 MR max archana: PA V2 max: 551.4 cm/sec 143.3 cm/sec MR max PG: PA max P.2 mmHg 121.6 mmHg Left Ventricle The left ventricle is grossly normal size. There is mild concentric left ventricular hypertrophy. The left ventricular ejection fraction is within normal limits. The Ejection Fraction estimate is 65-70%. Doppler measurements suggest pseudonormalized left ventricular relaxation, which is associated with grade II/IV or mild to moderate diastolic dysfunction. The left ventricular wall motion is normal. There is no thrombus. Right Ventricle The right ventricle is grossly normal size. The right ventricular systolic function is normal. Atria The right atrium is normal. The left atrium is mildly dilated. There is no Doppler evidence for an interatrial shunt. Mitral Valve The mitral valve is grossly normal. There is no mitral valve stenosis. There is a mild amount of mitral regurgitation. Aortic Valve The aortic valve is normal in structure and function. There is no aortic valve stenosis. No aortic regurgitation is present. Tricuspid Valve The tricuspid valve is not well visualized, but is grossly normal. There is a trace to mild amount of tricuspid regurgitation. Tricuspid regurgitation jet envelope not well defined to measure RV systolic pressure accurately. Pulmonic Valve The pulmonic valve is not well seen, but is grossly normal. There is no pulmonic valvular regurgitation. Great Vessels The inferior vena cava appeared normal and decreased > 50% with respiration (RAP 5-10 mmHg). : ETHEL ATKINSON Antonio
[2020-02-13 19:31] LABS: APPEARANCE,URINE CLEAR; BILIRUBIN,URINE NEGATIVE (NEGATIVE); COLOR,URINE YELLOW; GLUCOSE, URINE 50 mg/dL (NEGATIVE); KETONES,URINE NEGATIVE (NEGATIVE); LEUKOCYTE ESTERASE,URINE NEGATIVE (NEGATIVE); NITRITE,URINE NEGATIVE (NEGATIVE); PROTEIN,URINE 100 mg/dL (NEGATIVE); URINE SPECIFIC GRAVITY 1.015; UROBILINOGEN,URINE NEGATIVE mg/dL (<2.0)
--- NOTE | 2020-02-13 23:28 | CDI QUERY ---
CDI Query CDI Review: Dear Provider: To better reflect your patients severity of illness, morbidity, and resource utilization Please specify and document in the Progress Notes and Discharge Summary if you are monitoring / treating / evaluating any of the following conditions: Query Clinical indicators Please clarify and document if you agree with Cardiology diagnoses: Acute lower GI bleed Chronic lower GI bleed Unable to determine Other Acute blood loss anemia Acute on chronic blood loss anemia Dilutional anemia Unable to determine Other Per ED Note: He is also complaining of having bright red blood in his stools which are watery diarrhea for the last week. Per Cardiology Note: Secondary to a combination hypertensive emergency, anemia, tachycardia and CKD. The patient at this point does not require antiplatelet agents given that this is not a true acute coronary syndrome and he has a lower GI bleed with anemia. H/H 122.1 / 34.9 10.6 / 31.7 The terms probable, suspected, likely, possible or still to be ruled out may be used if you are unable to determine the exact nature of a condition. Thank you for your consideration, Clinical Documentation Physician Advisor SOO Gerber RN
[2020-02-13] MEDS: ATORVASTATIN CALCIUM 10 MG TABLET PO SCH (23:30)
[2020-02-14] MEDS ORDERED: ACETAMINOPHEN 325 MG TABLET PO PRN (01:03)
[2020-02-14] MEDS: NORMAL SALINE 1000 ML 1,000 ML IV PRN ×2 (03:32→13:34)
[2020-02-14 05:39] LABS: ABSOLUTE EOSINOPHILS # (AUTO) 0.1 10^3/uL (0.0-0.6); ABSOLUTE LYMPHOCYTES (AUTO) 2.7 10^3/uL (0.5-4.7); ABSOLUTE MONOCYTES (AUTO) 0.8 10^3/uL (0.1-1.4); ABSOLUTE NEUT (AUTO) 4.8 10^3/uL (1.7-8.2); BASOPHILS % (AUTO) 0.5 % (0-2); EOSINOPHILS % (AUTO) 1.7 % (0-6); HEMATOCRIT 27.8 % (37.9-51.0); HEMOGLOBIN 9.4 g/dL (13.5-17.0); LYMPHOCYTES % (AUTO) 31.9 % (13-45); MEAN CORPUSCULAR HEMOGLOBIN 29.2 pg (27.0-33.4); MEAN CORPUSCULAR HGB CONC 33.9 g/dL (32.0-36.0); MEAN CORPUSCULAR VOLUME 86 fl (80-97); MONOCYTES % (AUTO) 9.5 % (3-13); PLATELET COUNT 240 10^3/uL (150-450); RED BLOOD COUNT 3.22 10^6/uL (4.35-5.55); RED CELL DISTRIBUTION WIDTH 14.1 % (11.5-14.0); SEGMENTED NEUTROPHILS % (AUTO) 56.4 % (42-78); TOTAL CELLS COUNTED % (AUTO) 100 %; WHITE BLOOD COUNT 8.4 10^3/uL (4.0-10.5)
[2020-02-14 05:59] LABS: ALBUMIN 2.9 g/dL (3.5-5.0); ALKALINE PHOSPHATASE 61 U/L (38-126); ASPARTATE AMINO TRANSFERASE 20 U/L (17-59); BILIRUBIN,TOTAL 0.3 mg/dL (0.2-1.3); BLOOD UREA NITROGEN 22 mg/dL (7-20); CALCIUM 8.4 mg/dL (8.4-10.2); CARBON DIOXIDE 26 mmol/L (22-30); GLUCOSE 125 mg/dL (75-110); POTASSIUM 3.8 mmol/L (3.6-5.0); TOTAL PROTEIN 5.7 g/dL (6.3-8.2)
[2020-02-14 06:21] LABS: ANION GAP 5 (5-19); CHLORIDE 104 mmol/L (98-107)
[2020-02-14] MEDS: HEPARIN SOD (PORCINE) 5,000 UNIT/ML 1 ML VIAL SUBCUT SCH ×3 (07:44→22:16)
[2020-02-14] MEDS: PANTOPRAZOLE SODIUM 40 MG TABLET.DR PO SCH (09:13)
[2020-02-14] MEDS: COLCHICINE 0.6 MG TABLET PO SCH ×2 (09:13→22:15)
[2020-02-14] MEDS: CARVEDILOL 12.5 MG TABLET PO SCH ×2 (09:13→22:15)
[2020-02-14] MEDS: ASPIRIN 81 MG TABLET, ENT COATED PO SCH (09:14)
[2020-02-14] MEDS: AMLODIPINE BESYLATE 10 MG TABLET PO SCH (09:14)
--- NOTE | 2020-02-14 09:26 | PDOC PROGRESS REPORT ---
Subjective Progress Note for:: 02/14/20 Subjective:: TAYLOR RAMESH is a 49 year old male with history of hypertension noncompliant with medications, gout, CKD, smoker of 1 pack every 2 days for at least 10 years, without family history of premature coronary artery disease who was evaluated in the emergency room with complaints of right foot pain for the last 1 week as well as passing dark-colored urine and passing slight blood in the stool. In the emergency room he was found to have a very elevated blood pressure and his cardiac troponins eventually became positive. He was found to be anemic and with an elevated proBNP at 1910. This morning he feels well and denies cardiac complaints. He admits to a high sodium diet and noncompliance with medications. He also admits to multiple episodes of blood in the stool for quite some time however it had been intermittent therefore he never sought medical attention. He specifically denies chest pain, shortness of breath, lower extremity edema, palpitations, syncope and presyncope. His telemetry shows sinus tachycardia. 02/14/2020: The patient had an uneventful night and continues to deny ischemic and heart failure symptoms. His hemoglobin continues to decrease and is down to 9.4. His creatinine went up to 2.02, his troponin peaked at 0.555 and is now trending down. His telemetry demonstrates normal sinus rhythm with episodes of sinus tachycardia. Physical exam on 02/14/2020: GENERAL: Pleasant and conversational. Oriented x3 with normal mood. Not in acute distress. Well groomed and well developed. HEENT: Normocephalic, atraumatic. Pupils equal. Sclerae anicteric. Oropharynx moist. NECK: No JVD. No carotid bruits. LUNGS: Clear to auscultation bilaterally. Normal respiratory effort without the use of accessory muscles or intercostal retractions. CARDIOVASCULAR: Regular rate and rhythm, normal S1 and S2 without rubs, or gall ops. PMI not displaced. 3 out of 6 holosystolic murmur at the apex. ABDOMEN: No masses or tenderness to palpation. No bruit. No splenomegaly or hepatomegaly. No abdominal aorta bruit noted. EXTREMITIES: No edema, no cyanosis, no clubbing. +2 pulses femoral and pedal pulses bilaterally. SKIN: No lesions or rashes. MUSCULOSKELETAL: No chest tenderness to palpation. NEUROLOGIC: Nonfocal. No gross sensory or motor deficits bilateral upper or lower extremities. Reason For Visit: HYPERTENSIVE EMERGENCY/NONSTEMI Physical Exam Vital Signs: Temp Pulse Resp BP Pulse Ox 98.5 F 74 17 130/81 H 96 02/14/20 04:08 02/14/20 04:08 02/14/20 04:08 02/14/20 04:08 02/14/20 04:08 Intake & Output 02/12/20 02/13/20 02/14/20 06:59 06:59 06:59 Intake Total 1300 2267 Output Total 400 800 Balance 900 1467 Weight 91.1 kg 91.1 kg Results Laboratory Results: 02/14/20 04:51 02/14/20 04:51 02/13/20 02/13/20 02/14/20 05:14 18:00 04:51 WBC 8.4 RBC 3.22 L Hgb 9.4 L Hct 27.8 L MCV 86 MCH 29.2 MCHC 33.9 RDW 14.1 H Plt Count 240 Seg Neutrophils % 56.4 Sodium 135.4 L Potassium 3.5 L Chloride 101 Carbon Dioxide 27 Anion Gap 7 BUN 24 H Creatinine 1.83 H Est GFR ( Amer) 48 L Glucose 110 Calcium 8.8 Magnesium Total Bilirubin 0.6 AST 24 Alkaline Phosphatase 79 Total Protein 6.4 Albumin 3.5 Urine Color YELLOW Urine Appearance CLEAR Urine pH 6.0 Ur Specific [place] 1.015 Urine Protein 100 H Urine Glucose (UA) 50 H Urine Ketones NEGATIVE Urine Blood NEGATIVE Urine Nitrite NEGATIVE Ur Leukocyte Esterase NEGATIVE Urine WBC (Auto) 1 Urine RBC (Auto) 1 02/14/20 04:51 WBC RBC Hgb Hct MCV MCH MCHC RDW Plt Count Seg Neutrophils % Sodium 135.4 L Potassium 3.8 Chloride 104 Carbon Dioxide 26 Anion Gap 5 BUN 22 H Creatinine 2.02 H Est GFR ( Amer) 43 L Glucose 125 H Calcium 8.4 Magnesium 2.2 Total Bilirubin 0.3 AST 20 Alkaline Phosphatase 61 Total Protein 5.7 L Albumin 2.9 L Urine Color Urine Appearance Urine pH Ur Specific [place] Urine Protein Urine Glucose (UA) Urine Ketones Urine Blood Urine Nitrite Ur Leukocyte Esterase Urine WBC (Auto) Urine RBC (Auto) 02/12/20 02/12/20 02/12/20 12:23 15:36 18:25 CK-MB (CK-2) 1.42 Troponin I 0.082 0.108 0.107 NT-Pro-B Natriuret Pep 02/12/20 02/13/20 02/13/20 21:57 05:14 09:43 CK-MB (CK-2) Troponin I 0.146 0.529 NT-Pro-B Natriuret Pep 1910 H 02/13/20 12:58 CK-MB (CK-2) Troponin I 0.555 NT-Pro-B Natriuret Pep Impressions: Chest X-Ray 02/12/20 12:12 IMPRESSION: NO ACUTE FINDINGS. 02/14/20 04:51 02/14/20 04:51 MCV 86 fl (80-97) 02/14/20 04:51 MCH 29.2 pg (27.0-33.4) 02/14/20 04:51 MCHC 33.9 g/dL (32.0-36.0) 02/14/20 04:51 RDW 14.1 % (11.5-14.0) H 02/14/20 04:51 Seg Neutrophils % 56.4 % (42-78) 02/14/20 04:51 Chloride 104 mmol/L (98-107) 02/14/20 04:51 Carbon Dioxide 26 mmol/L (22-30) 02/14/20 04:51 Anion Gap 5 (5-19) 02/14/20 04:51 Est GFR ( Amer) 43 (>60) L 02/14/20 04:51 Glucose 125 mg/dL (75-110) H 02/14/20 04:51 Uric Acid 7.2 mg/dL (3.5-8.5) 02/12/20 18:25 Calcium 8.4 mg/dL (8.4-10.2) 02/14/20 04:51 Magnesium 2.2 mg/dL (1.6-2.3) 02/14/20 04:51 Total Bilirubin 0.3 mg/dL (0.2-1.3) 02/14/20 04:51 AST 20 U/L (17-59) 02/14/20 04:51 Alkaline Phosphatase 61 U/L (38-126) 02/14/20 04:51 C-Reactive Protein 19.7 mg/L (<10.0) H 02/12/20 12:23 Total Protein 5.7 g/dL (6.3-8.2) L 02/14/20 04:51 Albumin 2.9 g/dL (3.5-5.0) L 02/14/20 04:51 Triglycerides 184 mg/dL (<150) H 02/12/20 18:25 Cholesterol 192.12 mg/dL (0-200) 02/12/20 18:25 LDL Cholesterol Direct 129 mg/dL (<100) H 02/12/20 18:25 VLDL Cholesterol 36.8 mg/dL (10-31) H 02/12/20 18:25 HDL Cholesterol 41 mg/dL (>40) 02/12/20 18:25 Urine Color YELLOW 02/13/20 18:00 Urine Appearance CLEAR 02/13/20 18:00 Urine pH 6.0 (5.0-9.0) 02/13/20 18:00 Ur Specific [place] 1.015 02/13/20 18:00 Urine Protein 100 mg/dL (NEGATIVE) H 02/13/20 18:00 Urine Glucose (UA) 50 mg/dL (NEGATIVE) H 02/13/20 18:00 Urine Ketones NEGATIVE mg/dL (NEGATIVE) 02/13/20 18:00 Urine Blood NEGATIVE (NEGATIVE) 02/13/20 18:00 Urine Nitrite NEGATIVE (NEGATIVE) 02/13/20 18:00 Ur Leukocyte Esterase NEGATIVE (NEGATIVE) 02/13/20 18:00 Urine WBC (Auto) 1 /HPF 02/13/20 18:00 Urine RBC (Auto) 1 /HPF 02/13/20 18:00 02/12/20 02/12/20 02/12/20 12:23 15:36 18:25 CK-MB (CK-2) 1.42 Troponin I 0.082 0.108 0.107 NT-Pro-B Natriuret Pep 02/12/20 02/13/20 02/13/20 21:57 05:14 09:43 CK-MB (CK-2) Troponin I 0.146 0.529 NT-Pro-B Natriuret Pep 1910 H 02/13/20 12:58 CK-MB (CK-2) Troponin I 0.555 NT-Pro-B Natriuret Pep Current Medication List Generic Name Dose Route Start Last Admin Trade Name Freq PRN Reason Stop Dose Admin Acetaminophen 650 mg 02/14/20 01:03 Tylenol 325 Mg Tablet PO 03/15/20 01:02 Q6HP PRN HEADACHE Amlodipine Besylate 10 mg 02/13/20 10:00 02/13/20 09:36 Norvasc 10 Mg Tablet PO 03/14/20 09:59 10 mg DAILY HARJEET Administration Aspirin 81 mg 02/14/20 10:00 Ecotrin 81 Mg Ec Tablet PO 03/15/20 09:59 DAILY HARJEET Atorvastatin Calcium 5 mg 02/12/20 22:00 02/13/20 23:30 Lipitor 10 Mg Tablet PO 03/13/20 21:59 5 mg QHS HARJEET Administration Carvedilol 12.5 mg 02/13/20 11:00 02/13/20 23:30 Coreg 12.5 Mg Tablet PO 03/14/20 10:59 12.5 mg Q12 HARJEET Administration Colchicine 0.6 mg 02/13/20 10:00 02/13/20 23:31 Colcrys 0.6 Mg Tablet PO 03/14/20 09:59 0.6 mg Q12 HARJEET Administration Heparin Sodium (Porcine) 5,000 unit 02/13/20 14:00 02/13/20 23:31 Heparin Inj 5,000 Units/Ml 1 Ml Vial SUBCUT 03/14/20 13:59 5,000 unit Q8 HARJEET Administration Hydralazine HCl 10 mg 02/13/20 11:30 Apresoline Inj/Pf 20 Mg/1 Ml Sdv IV 03/13/20 17:07 Q6HP PRN GIVE FOR SBP > 170 Sodium Chloride 1,000 mls @ 100 mls/hr 02/12/20 17:02 02/14/20 03:32 Nacl 0.9% 1000 Ml Iv Soln IV 03/13/20 17:01 100 mls/hr CONTINUOUS PRN Administration THIS MED IS NOT "PRN" Lorazepam 1 mg 02/12/20 17:13 Ativan Inj 2 Mg/1 Ml Vial IV 02/19/20 17:12 Q6HP PRN ANXIETY Morphine Sulfate 2 mg 02/12/20 17:01 02/13/20 06:18 Morphine 10 Mg/Ml Inj IV 02/19/20 17:00 2 mg Q4HP PRN Administration FOR PAIN Ondansetron HCl 4 mg 02/12/20 17:04 Zofran Inj/Pf 4 Mg/2 Ml Sdv IV 03/13/20 17:14 Q4H PRN UNRESOLVED NAUSEA/VOMITING Pantoprazole Sodium 40 mg 02/13/20 10:00 02/13/20 09:[address] Tablet PO 03/14/20 09:59 40 mg DAILY HARJEET Administration Sodium Chloride 2.5 ml 02/12/20 22:00 02/13/20 23:45 Saline Flush 2.5 Ml Monoject Prefil Syrin IV 03/13/20 21:59 Not Given Q8 HARJEET Discontinued Medications Generic Name Dose Route Start Last Admin Trade Name Freq PRN Reason Stop Dose Admin Amlodipine Besylate 10 mg 02/12/20 17:02 02/12/20 17:50 Norvasc 10 Mg Tablet PO 02/12/20 17:03 10 mg NOW ONE Administration Aspirin 81 mg 02/13/20 10:00 Aspirin 81 Mg Chewable Tablet PO 03/14/20 09:59 DAILY HARJEET Clonidine HCl 1 each 02/12/20 17:28 02/12/20 19:45 Catapres-Tts 2 (0.2 Mg/24 Hr) Transderm Ptch TD 02/12/20 17:29 1 each NOW ONE Administration Clonidine HCl Confirm 02/12/20 18:58 02/12/20 19:51 Catapres-Tts 2 (0.2 Mg/24 Hr) Transderm Ptch Administered 02/12/20 18:59 Not Given Dose 1 each .ROUTE .STK-MED ONE Colchicine 0.6 mg 02/12/20 17:06 02/13/20 06:28 Colcrys 0.6 Mg Tablet PO 03/13/20 17:05 0.6 mg Q6HP PRN Administration FOR PAIN Enoxaparin Sodium 80 mg 02/12/20 18:00 02/13/20 06:18 Lovenox Inj 80 Mg/0.8 Ml Disp.Syrin SUBCUT 03/13/20 17:59 80 mg Q12A HARJEET Administration Hydralazine HCl 10 mg 02/12/20 14:03 02/12/20 14:22 Apresoline Inj/Pf 20 Mg/1 Ml Sdv IV 02/12/20 14:04 10 mg NOW ONE Administration Hydralazine HCl 10 mg 02/12/20 15:10 02/12/20 15:23 Apresoline Inj/Pf 20 Mg/1 Ml Sdv IV 02/12/20 15:11 10 mg NOW ONE Administration Hydralazine HCl 10 mg 02/12/20 17:02 02/12/20 17:59 Apresoline Inj/Pf 20 Mg/1 Ml Sdv IV 02/12/20 17:03 Not Given NOW ONE Hydralazine HCl 100 mg 02/12/20 18:00 02/12/20 17:49 Apresoline 50 Mg Tablet PO 03/13/20 17:59 100 mg TID HARJEET Administration Hydralazine HCl 10 mg 02/12/20 17:08 02/13/20 06:26 Apresoline Inj/Pf 20 Mg/1 Ml Sdv IV 03/13/20 17:07 10 mg Q6HP PRN Administration GIVE FOR SBP > [] Sodium Chloride 1,000 mls @ 0 mls/hr 02/12/20 14:18 02/12/20 15:23 Nacl 0.9% 1000 Ml Iv Soln IV 02/12/20 14:19 Infused BOLUS ONE Infusion Wide Open Nicotine 1 each 02/12/20 17:14 02/12/20 18:00 Nicoderm 14 Mg/24 Hr Transdermal Patch TD 02/12/20 17:15 Not Given NOW ONE Nitroglycerin 1 gm 02/12/20 17:11 02/12/20 17:52 Nitrol 2% Ointment 1gm Packet TP 02/12/20 17:12 1 gm NOW ONE Administration Oxycodone HCl 5 mg 02/12/20 15:11 02/12/20 15:22 Oxy-Ir 5 Mg Tablet PO 02/12/20 15:12 5 mg NOW ONE Administration Pantoprazole Sodium 40 mg 02/12/20 17:02 02/12/20 17:[address] Tablet PO 02/12/20 17:03 40 mg NOW ONE Administration Assessment & Plan - Diagnosis (1) Hypertensive emergency Is this a current diagnosis for this admission?: Yes Plan: His blood pressure is is now essentially at goal. We had a very long discussion including the importance of low-sodium diet, exercise and compliance with medic ations. His creatinine continue to rise therefore we will continue to hold off on JOSE F inhibitor/ARB for now. Recommendations: -Continue with current medical management. -We will start JOSE F inhibitor or an ARB once his GLYNN is improved. (2) Type 2 myocardial infarction Plan: The patient continues to deny ischemic symptoms. His elevated troponin/type II myocardial infarction is secondary to a combination hypertensive emergency, anemia, tachycardia and CKD. The patient at this point does not require antiplatelet agents given that this is not a true acute coronary syndrome and he has a lower GI bleed with anemia. His echocardiogram demonstrated a normal ejection fraction without regional wall motion abnormalities. Recommendations: -No need to continue trending cardiac enzymes. -Continue to hold antiplatelet agents until GI bleed evaluated. -Ischemic assessment once his anemia is resolved and his blood pressure is controlled. (3) Tobacco abuse Is this a current diagnosis for this admission?: No Plan: The deleterious effects of tobacco use were discussed at length with the patient as well as the importance and my recommendation of quitting all tobacco products MISBAH. (4) Gout Qualifiers: Gout site: foot Gout etiology: unspecified cause Chronicity: acute L aterality: right Qualified Code(s): M10.9 - Gout, unspecified Is this a current diagnosis for this admission?: Yes Plan: Further management per primary team. (5) Anemia Plan: Secondary to a low GI bleed and CKD. Recommendations: -Inpatient GI evaluation given his type II OH.
--- NOTE | 2020-02-14 13:51 | PDOC PROGRESS REPORT ---
Subjective Progress Note for:: 02/14/20 Subjective:: No adverse events overnight. No new complaints. Vital signs have been stable. He says his right foot still aches and is still swollen little bit from his gout but he feels like it is gotten better. No chest pain or shortness of breath. Reason For Visit: HYPERTENSIVE EMERGENCY/NONSTEMI Physical Exam Vital Signs: Temp Pulse Resp BP Pulse Ox 98.1 F 72 16 126/76 H 97 02/14/20 10:56 02/14/20 10:56 02/14/20 10:56 02/14/20 10:56 02/14/20 10:56 Intake & Output 02/13/20 02/14/20 02/15/20 06:59 06:59 06:59 Intake Total 1300 2727 360 Output Total 400 1280 Balance 900 1447 360 Weight 91.1 kg 92.6 kg General appearance: PRESENT: no acute distress, cooperative, disheveled Respiratory exam: PRESENT: clear to auscultation loan, symmetrical, unlabored. ABSENT: accessory muscle use, chest wall tenderness, crackles, prolonged expiratory phas, rhonchi, tachypnea, wheezes Cardiovascular exam: PRESENT: RRR, +S1, +S2, systolic murmur Pulses: PRESENT: normal carotid pulses Vascular exam: PRESENT: normal capillary refill GI/Abdominal exam: PRESENT: normal bowel sounds, soft. ABSENT: distended, guarding, rebound, tenderness Extremities exam: PRESENT: pedal edema - Right foot. ABSENT: clubbing Musculoskeletal exam: PRESENT: normal inspection. ABSENT: deformity Neurological exam: PRESENT: alert, awake, oriented to person, oriented to place, oriented to situation Psychiatric exam: PRESENT: appropriate affect, normal mood Skin exam: PRESENT: dry, warm Results Laboratory Results: 02/14/20 04:51 02/14/20 04:51 02/13/20 02/14/20 02/14/20 18:00 04:51 04:51 WBC 8.4 RBC 3.22 L Hgb 9.4 L Hct 27.8 L MCV 86 MCH 29.2 MCHC 33.9 RDW 14.1 H Plt Count 240 Seg Neutrophils % 56.4 Sodium 135.4 L Potassium 3.8 Chloride 104 Carbon Dioxide 26 Anion Gap 5 BUN 22 H Creatinine 2.02 H Est GFR ( Amer) 43 L Glucose 125 H Calcium 8.4 Magnesium 2.2 Total Bilirubin 0.3 AST 20 Alkaline Phosphatase 61 Total Protein 5.7 L Albumin 2.9 L Urine Color YELLOW Urine Appearance CLEAR Urine pH 6.0 Ur Specific [place] 1.015 Urine Protein 100 H Urine Glucose (UA) 50 H Urine Ketones NEGATIVE Urine Blood NEGATIVE Urine Nitrite NEGATIVE Ur Leukocyte Esterase NEGATIVE Urine WBC (Auto) 1 Urine RBC (Auto) 1 02/12/20 02/12/20 02/12/20 12:23 15:36 18:25 CK-MB (CK-2) 1.42 Troponin I 0.082 0.108 0.107 NT-Pro-B Natriuret Pep 02/12/20 02/13/20 02/13/20 21:57 05:14 09:43 CK-MB (CK-2) Troponin I 0.146 0.529 NT-Pro-B Natriuret Pep 1910 H 02/13/20 02/14/20 12:58 06:57 CK-MB (CK-2) Troponin I 0.555 0.464 NT-Pro-B Natriuret Pep Impressions: Chest X-Ray 02/12/20 12:12 IMPRESSION: NO ACUTE FINDINGS. Assessment and Plan - Diagnosis (1) GLYNN (acute kidney injury) Is this a current diagnosis for this admission?: Yes Plan: Creatinine is still elevated. Up a little bit from yesterday but not dramatically so. BUN to creatinine ratio is low. If this is acute, it is likely ATN. Probably related to his hypertension. The last time we had any data on his creatinine was from 3 years ago, and at that time it was normal. He may have developed some chronic kidney disease in the interim if his blood pressures have remained substantially elevated. Trying to keep him off of any medications that would insult the kidneys any further at this point until we know what his baseline is. (2) Gout Qualifiers: Gout site: foot Gout etiology: unspecified cause Chronicity: acute Laterality: right Qualified Code(s): M10.9 - Gout, unspecified Is this a current diagnosis for this admission?: Yes Plan: He is on colchicine and seems to be responding well. Trying to avoid NSAIDs right now because of his renal function. (3) Hypertensive emergency Is this a current diagnosis for this admission?: Yes Plan: This has resolved. His blood pressures have improved substantially. (4) Tobacco abuse Is this a current diagnosis for this admission?: Yes Plan: Patient has a current every day smoker. He has been counseled regarding the multiple deleterious effects on his health and was encouraged to quit smoking immediately. (5) Type 2 myocardial infarction Is this a current diagnosis for this admission?: Yes Plan: From demand ischemia as a result of the high blood pressure. No chest pain. Troponins are trending down. (6) Diastolic dysfunction with heart failure Qualifiers: Heart failure chronicity: acute Qualified Code(s): I50.31 - Acute diastolic (congestive) heart failure Is this a current diagnosis for this admission?: Yes Plan: He had grade 2 diastolic dysfunction on his echocardiogram. He was never actually in heart failure, but the electronic record will not let me code this problem any other way. We will pursue aggressive blood pressure control. (7) Anemia Qualifiers: Anemia type: other cause Other causes of anemia: other cause, not classified Qualified Code(s): D64.89 - Other specified anemias Is this a current diagnosis for this admission?: Yes Plan: Dilutional anemia. Patient has been in a positive fluid balance every day. (8) Lower GI bleed Is this a current diagnosis for this admission?: Yes Plan: He said he had bright red blood per rectum when he was having some watery diarrhea. His Hemoccult was positive. Will consider endoscopic evaluation. Hemoglobin is low but I think it is more from dilution than from acute blood loss. - Time Time Spent with patient: 25-34 minutes
[2020-02-14] MEDS: ATORVASTATIN CALCIUM 10 MG TABLET PO SCH (22:16)
[2020-02-15] MEDS: NORMAL SALINE 1000 ML 1,000 ML IV PRN (05:04)
[2020-02-15] MEDS: HEPARIN SOD (PORCINE) 5,000 UNIT/ML 1 ML VIAL SUBCUT SCH ×3 (05:06→21:10)
[2020-02-15 05:39] LABS: HEMATOCRIT 29.2 % (37.9-51.0); MEAN CORPUSCULAR HEMOGLOBIN 29.5 pg (27.0-33.4); MEAN CORPUSCULAR HGB CONC 34.2 g/dL (32.0-36.0); MEAN CORPUSCULAR VOLUME 86 fl (80-97); PLATELET COUNT 267 10^3/uL (150-450); RED BLOOD COUNT 3.39 10^6/uL (4.35-5.55); WHITE BLOOD COUNT 8.5 10^3/uL (4.0-10.5)
[2020-02-15 06:04] LABS: APPEARANCE,URINE CLEAR; BILIRUBIN,URINE NEGATIVE (NEGATIVE); COLOR,URINE YELLOW; GLUCOSE, URINE 50 mg/dL (NEGATIVE); KETONES,URINE NEGATIVE (NEGATIVE); LEUKOCYTE ESTERASE,URINE NEGATIVE (NEGATIVE); NITRITE,URINE NEGATIVE (NEGATIVE); PROTEIN,URINE 100 mg/dL (NEGATIVE); URINE SPECIFIC GRAVITY 1.011; UROBILINOGEN,URINE NEGATIVE mg/dL (<2.0)
--- NOTE | 2020-02-15 08:58 | PDOC PROGRESS REPORT ---
Subjective Progress Note for:: 02/15/20 Subjective:: TAYLOR RAMESH is a 49 year old male with history of hypertension noncompliant with medications, gout, CKD, smoker of 1 pack every 2 days for at least 10 years, without family history of premature coronary artery disease who was evaluated in the emergency room with complaints of right foot pain for the last 1 week as well as passing dark-colored urine and passing slight blood in the stool. In the emergency room he was found to have a very elevated blood pressure and his cardiac troponins eventually became positive. He was found to be anemic and with an elevated proBNP at 1910. This morning he feels well and denies cardiac complaints. He admits to a high sodium diet and noncompliance with medications. He also admits to multiple episodes of blood in the stool for quite some time however it had been intermittent therefore he never sought medical attention. He specifically denies chest pain, shortness of breath, lower extremity edema, palpitations, syncope and presyncope. His telemetry shows sinus tachycardia. 02/15/2020: The patient had an uneventful night and continues to deny ischemic and heart failure symptoms. His hemoglobin is essentially stable at 10. His creatinine went up to 2.02 as of yesterday, his chemistry results are still pending this morning. His troponin peaked at 0.555 and is now trending down. His telemetry demonstrates normal sinus rhythm with episodes of sinus tachycardia. Physical exam on 02/15/2020: GENERAL: Pleasant and conversational. Oriented x3 with normal mood. Not in acute distress. Well groomed and well developed. HEENT: Normocephalic, atraumatic. Pupils equal. Sclerae anicteric. Oropharynx moist. NECK: No JVD. No carotid bruits. LUNGS: Clear to auscultation bilaterally. Normal respiratory effort without the use of accessory muscles or intercostal retractions. CARDIOVASCULAR: Regular rate and rhythm, normal S1 and S2 without rubs, or gallops. PMI not displaced. 3 out of 6 holosystolic murmur at the apex. ABDOMEN: No masses or tenderness to palpation. No bruit. No splenomegaly or hepatomegaly. No abdominal aorta bruit noted. EXTREMITIES: No edema, no cyanosis, no clubbing. +2 pulses femoral and pedal pulses bilaterally. SKIN: No lesions or rashes. MUSCULOSKELETAL: No chest tenderness to palpation. NEUROLOGIC: Nonfocal. No gross sensory or motor deficits bilateral upper or lower extremities. Reason For Visit: HYPERTENSIVE EMERGENCY/NONSTEMI Physical Exam Vital Signs: Temp Pulse Resp BP Pulse Ox 99.2 F 73 16 147/88 H 95 02/15/20 04:07 02/15/20 07:00 02/15/20 04:07 02/15/20 04:07 02/15/20 04:07 Intake & Output 02/14/20 02/15/20 02/16/20 06:59 06:59 06:59 Intake Total 2727 4360 Output Total 1280 960 Balance 1447 3400 Weight 92.6 kg 93.9 kg Results Laboratory Results: 02/15/20 04:34 02/14/20 04:51 02/15/20 02/15/20 04:34 05:45 WBC 8.5 RBC 3.39 L Hgb 10.0 L Hct 29.2 L MCV 86 MCH 29.5 MCHC 34.2 RDW 14.0 Plt Count 267 Urine Color YELLOW Urine Appearance CLEAR Urine pH 6.0 Ur Specific [place] 1.011 Urine Protein 100 H Urine Glucose (UA) 50 H Urine Ketones NEGATIVE Urine Blood NEGATIVE Urine Nitrite NEGATIVE Ur Leukocyte Esterase NEGATIVE Urine WBC (Auto) 0 Urine RBC (Auto) 0 02/12/20 02/12/20 02/12/20 12:23 15:36 18:25 CK-MB (CK-2) 1.42 Troponin I 0.082 0.108 0.107 NT-Pro-B Natriuret Pep 02/12/20 02/13/20 02/13/20 21:57 05:14 09:43 CK-MB (CK-2) Troponin I 0.146 0.529 NT-Pro-B Natriuret Pep 1910 H 02/13/20 02/14/20 12:58 06:57 CK-MB (CK-2) Troponin I 0.555 0.464 NT-Pro-B Natriuret Pep Impressions: Chest X-Ray 02/12/20 12:12 IMPRESSION: NO ACUTE FINDINGS. 02/15/20 04:34 02/14/20 04:51 MCV 86 fl (80-97) 02/15/20 04:34 MCH 29.5 pg (27.0-33.4) 02/15/20 04:34 MCHC 34.2 g/dL (32.0-36.0) 02/15/20 04:34 RDW 14.0 % (11.5-14.0) 02/15/20 04:34 Seg Neutrophils % 56.4 % (42-78) 02/14/20 04:51 Chloride 104 mmol/L (98-107) 02/14/20 04:51 Carbon Dioxide 26 mmol/L (22-30) 02/14/20 04:51 Anion Gap 5 (5-19) 02/14/20 04:51 Est GFR ( Amer) 43 (>60) L 02/14/20 04:51 Glucose 125 mg/dL (75-110) H 02/14/20 04:51 Uric Acid 7.2 mg/dL (3.5-8.5) 02/12/20 18:25 Calcium 8.4 mg/dL (8.4-10.2) 02/14/20 04:51 Magnesium 2.2 mg/dL (1.6-2.3) 02/14/20 04:51 Total Bilirubin 0.3 mg/dL (0.2-1.3) 02/14/20 04:51 AST 20 U/L (17-59) 02/14/20 04:51 Alkaline Phosphatase 61 U/L (38-126) 02/14/20 04:51 C-Reactive Protein 19.7 mg/L (<10.0) H 02/12/20 12:23 Total Protein 5.7 g/dL (6.3-8.2) L 02/14/20 04:51 Albumin 2.9 g/dL (3.5-5.0) L 02/14/20 04:51 Triglycerides 184 mg/dL (<150) H 02/12/20 18:25 Cholesterol 192.12 mg/dL (0-200) 02/12/20 18:25 LDL Cholesterol Direct 129 mg/dL (<100) H 02/12/20 18:25 VLDL Cholesterol 36.8 mg/dL (10-31) H 02/12/20 18:25 HDL Cholesterol 41 mg/dL (>40) 02/12/20 18:25 Urine Color YELLOW 02/15/20 05:45 Urine Appearance CLEAR 02/15/20 05:45 Urine pH 6.0 (5.0-9.0) 02/15/20 05:45 Ur Specific [place] 1.011 02/15/20 05:45 Urine Protein 100 mg/dL (NEGATIVE) H 02/15/20 05:45 Urine Glucose (UA) 50 mg/dL (NEGATIVE) H 02/15/20 05:45 Urine Ketones NEGATIVE mg/dL (NEGATIVE) 02/15/20 05:45 Urine Blood NEGATIVE (NEGATIVE) 02/15/20 05:45 Urine Nitrite NEGATIVE (NEGATIVE) 02/15/20 05:45 Ur Leukocyte Esterase NEGATIVE (NEGATIVE) 02/15/20 05:45 Urine WBC (Auto) 0 /HPF 02/15/20 05:45 Urine RBC (Auto) 0 /HPF 02/15/20 05:45 02/12/20 02/12/20 02/12/20 12:23 15:36 18:25 CK-MB (CK-2) 1.42 Troponin I 0.082 0.108 0.107 NT-Pro-B Natriuret Pep 02/12/20 02/13/20 02/13/20 21:57 05:14 09:43 CK-MB (CK-2) Troponin I 0.146 0.529 NT-Pro-B Natriuret Pep 1910 H 02/13/20 02/14/20 12:58 06:57 CK-MB (CK-2) Troponin I 0.555 0.464 NT-Pro-B Natriuret Pep Current Medication List Generic Name Dose Route Start Last Admin Trade Name Freq PRN Reason Stop Dose Admin Acetaminophen 650 mg 02/14/20 01:03 Tylenol 325 Mg Tablet PO 03/15/20 01:02 Q6HP PRN HEADACHE Amlodipine Besylate 10 mg 02/13/20 10:00 02/14/20 09:14 Norvasc 10 Mg Tablet PO 03/14/20 09:59 10 mg DAILY HARJEET Administration Aspirin 81 mg 02/14/20 10:00 02/14/20 09:14 Ecotrin 81 Mg Ec Tablet PO 03/15/20 09:59 81 mg DAILY HARJEET Administration Atorvastatin Calcium 5 mg 02/12/20 22:00 02/14/20 22:16 Lipitor 10 Mg Tablet PO 03/13/20 21:59 5 mg QHS HARJEET Administration Carvedilol 12.5 mg 02/13/20 11:00 02/14/20 22:15 Coreg 12.5 Mg Tablet PO 03/14/20 10:59 12.5 mg Q12 HARJEET Administration Colchicine 0.6 mg 02/13/20 10:00 02/14/20 22:15 Colcrys 0.6 Mg Tablet PO 03/14/20 09:59 0.6 mg Q12 HARJEET Administration Heparin Sodium (Porcine) 5,000 unit 02/13/20 14:00 02/15/20 05:06 Heparin Inj 5,000 Units/Ml 1 Ml Vial SUBCUT 03/14/20 13:59 5,000 unit Q8 HARJEET Administration Hydralazine HCl 10 mg 02/13/20 11:30 Apresoline Inj/Pf 20 Mg/1 Ml Sdv IV 03/13/20 17:07 Q6HP PRN GIVE FOR SBP > 170 Sodium Chloride 1,000 mls @ 100 mls/hr 02/12/20 17:02 02/15/20 05:04 Nacl 0.9% 1000 Ml Iv Soln IV 03/13/20 17:01 100 mls/hr CONTINUOUS PRN Administration THIS MED IS NOT "PRN" Lorazepam 1 mg 02/12/20 17:13 Ativan Inj 2 Mg/1 Ml Vial IV 02/19/20 17:12 Q6HP PRN ANXIETY Morphine Sulfate 2 mg 02/12/20 17:01 02/13/20 06:18 Morphine 10 Mg/Ml Inj IV 02/19/20 17:00 2 mg Q4HP PRN Administration FOR PAIN Ondansetron HCl 4 mg 02/12/20 17:04 Zofran Inj/Pf 4 Mg/2 Ml Sdv IV 03/13/20 17:14 Q4H PRN UNRESOLVED NAUSEA/VOMITING Pantoprazole Sodium 40 mg 02/13/20 10:00 02/14/20 09:[address] Tablet PO 03/14/20 09:59 40 mg DAILY HARJEET Administration Sodium Chloride 2.5 ml 02/12/20 22:00 02/15/20 05:07 Saline Flush 2.5 Ml Monoject Prefil Syrin IV 03/13/20 21:59 Not Given Q8 HARJEET Discontinued Medications Generic Name Dose Route Start Last Admin Trade Name Freq PRN Reason Stop Dose Admin Amlodipine Besylate 10 mg 02/12/20 17:02 02/12/20 17:50 Norvasc 10 Mg Tablet PO 02/12/20 17:03 10 mg NOW ONE Administration Aspirin 81 mg 02/13/20 10:00 Aspirin 81 Mg Chewable Tablet PO 03/14/20 09:59 DAILY HARJEET Clonidine HCl 1 each 02/12/20 17:28 02/12/20 19:45 Catapres-Tts 2 (0.2 Mg/24 Hr) Transderm Ptch TD 02/12/20 17:29 1 each NOW ONE Administration Clonidine HCl Confirm 02/12/20 18:58 02/12/20 19:51 Catapres-Tts 2 (0.2 Mg/24 Hr) Transderm Ptch Administered 02/12/20 18:59 Not Given Dose 1 each .ROUTE .STK-MED ONE Colchicine 0.6 mg 02/12/20 17:06 02/13/20 06:28 Colcrys 0.6 Mg Tablet PO 03/13/20 17:05 0.6 mg Q6HP PRN Administration FOR PAIN Enoxaparin Sodium 80 mg 02/12/20 18:00 02/13/20 06:18 Lovenox Inj 80 Mg/0.8 Ml Disp.Syrin SUBCUT 03/13/20 17:59 80 mg Q12A HARJEET Administration Hydralazine HCl 10 mg 02/12/20 14:03 02/12/20 14:22 Apresoline Inj/Pf 20 Mg/1 Ml Sdv IV 02/12/20 14:04 10 mg NOW ONE Administration Hydralazine HCl 10 mg 02/12/20 15:10 02/12/20 15:23 Apresoline Inj/Pf 20 Mg/1 Ml Sdv IV 02/12/20 15:11 10 mg NOW ONE Administration Hydralazine HCl 10 mg 02/12/20 17:02 02/12/20 17:59 Apresoline Inj/Pf 20 Mg/1 Ml Sdv IV 02/12/20 17:03 Not Given NOW ONE Hydralazine HCl 100 mg 02/12/20 18:00 02/12/20 17:49 Apresoline 50 Mg Tablet PO 03/13/20 17:59 100 mg TID HARJEET Administration Hydralazine HCl 10 mg 02/12/20 17:08 02/13/20 06:26 Apresoline Inj/Pf 20 Mg/1 Ml Sdv IV 07/21/20 17:07 10 mg Q6HP PRN Administration GIVE FOR SBP > [] Sodium Chloride 1,000 mls @ 0 mls/hr 02/12/20 14:18 02/12/20 15:23 Nacl 0.9% 1000 Ml Iv Soln IV 02/12/20 14:19 Infused BOLUS ONE Infusion Wide Open Nicotine 1 each 02/12/20 17:14 02/12/20 18:00 Nicoderm 14 Mg/24 Hr Transdermal Patch TD 02/12/20 17:15 Not Given NOW ONE Nitroglycerin 1 gm 02/12/20 17:11 02/12/20 17:52 Nitrol 2% Ointment 1gm Packet TP 02/12/20 17:12 1 gm NOW ONE Administration Oxycodone HCl 5 mg 02/12/20 15:11 02/12/20 15:22 Oxy-Ir 5 Mg Tablet PO 02/12/20 15:12 5 mg NOW ONE Administration Pantoprazole Sodium 40 mg 02/12/20 17:02 02/12/20 17:[address] Tablet PO 02/12/20 17:03 40 mg NOW ONE Administration Assessment & Plan - Diagnosis (1) Hypertensive emergency Is this a current diagnosis for this admission?: Yes Plan: His blood pressure is improved however continues to be above his goal of 130/80 or below. We had a very long discussion including the importance of low-sodium diet, exercise and compliance with medications. His creatinine continue to rise therefore we will continue to hold off on JOSE F inhibitor/ARB for now. Recommendations: -Continue with current medical management for now. -Start JOSE F inhibitor or an ARB once his renal function improved. -Consider changing Norvasc to a different dihydropyridine calcium channel holly such as nifedipine. -Further management deferred to primary team. (2) Type 2 myocardial infarction Is this a current diagnosis for this admission?: Yes Plan: The patient continues to deny ischemic symptoms. His elevated troponin/type II myocardial infarction is secondary to a combination hypertensive emergency, anemia, tachycardia and CKD. The patient at this point does not require antiplatelet agents given that this is not a true acute coronary syndrome and he has a lower GI bleed with anemia. His echocardiogram demonstrated a normal ejection fraction without regional wall motion abnormalities. The patient however is at a very high risk of coronary artery disease therefore he will require an ischemic assessment but unfortunately his anemia, worsening renal function and uncontrolled hypertension make [facility] as well as stress test undesir able at this time. Recommendations: -Continue to hold antiplatelet agents until GI bleed evaluated. -Ischemic assessment once his anemia is worked up and his blood pressure is controlled. -Increase Lipitor to 40 mg daily. -LFTs a lipid panel in 6 weeks. -Cardiology does not have further recommendations at this point therefore we will sign off. -The patient was provided with Dr. Arciniega's business card and we will arrange for follow-up within 1 week of discharge. (3) Tobacco abuse Is this a current diagnosis for this admission?: Yes Plan: The deleterious effects of tobacco use were discussed at length with the patient as well as the importance and my recommendation of quitting all tobacco products MISBAH. (4) Gout Qualifiers: Gout site: foot Gout etiology: unspecified cause Chronicity: acute Laterality: right Qualified Code(s): M10.9 - Gout, unspecified Is this a current diagnosis for this admission?: Yes Plan: Further management per primary team. (5) Anemia Qualifiers: Anemia type: other cause Other causes of anemia: other cause, not classified Qualified Code(s): D64.89 - Other specified anemias Is this a current diagnosis for this admission?: Yes Plan: Secondary to a low GI bleed and CKD. Recommendations: -Inpatient GI evaluation given his type II RI in order to expedite reinitiation of baby aspirin and ischemic assessment.
[2020-02-15 09:00] LABS: ANION GAP 6 (5-19); BLOOD UREA NITROGEN 20 mg/dL (7-20); CALCIUM 8.7 mg/dL (8.4-10.2); CARBON DIOXIDE 26 mmol/L (22-30); CHLORIDE 106 mmol/L (98-107); GLUCOSE 118 mg/dL (75-110); POTASSIUM 3.9 mmol/L (3.6-5.0)
[2020-02-15] MEDS: ASPIRIN 81 MG TABLET, ENT COATED PO SCH (09:07)
[2020-02-15] MEDS: AMLODIPINE BESYLATE 10 MG TABLET PO SCH (09:07)
[2020-02-15] MEDS: PANTOPRAZOLE SODIUM 40 MG TABLET.DR PO SCH (09:07)
[2020-02-15] MEDS: CARVEDILOL 12.5 MG TABLET PO SCH ×2 (09:07→21:09)
[2020-02-15] MEDS: COLCHICINE 0.6 MG TABLET PO SCH (09:07)
[2020-02-15] MEDS ORDERED: GLUCAGON,HUMAN RECOMB 1 MG INJ SUBCUT PRN (10:13)
[2020-02-15] MEDS ORDERED: DEXTROSE 40% GEL 15 GM TUBE PO PRN ×2 (10:13)
[2020-02-15] MEDS ORDERED: DEXTROSE 50%-WATER 25 GM/50 ML DISP.SYRIN IV PRN ×2 (10:13)
[2020-02-15] MEDS: PREDNISONE 20 MG TABLET PO SCH (13:28)
[2020-02-15] MEDS ORDERED: HYDRALAZINE HCL INJ/PF 20 MG/1 ML SDV IV PRN (16:00)
--- NOTE | 2020-02-15 17:28 | PDOC PROGRESS REPORT ---
Subjective Progress Note for:: 02/15/20 Subjective:: No adverse events overnight. No new complaints. Creatinine stable from yesterday. He said his right foot really does not feel much better. He said that the Indocin has always worked well in the past but he understands why he cannot take that medication now. He said he has taken colchicine in the past and it has never really worked for him. Reason For Visit: HYPERTENSIVE EMERGENCY/NONSTEMI Physical Exam Vital Signs: Temp Pulse Resp BP Pulse Ox 98.0 F 70 18 148/86 H 96 02/15/20 16:00 02/15/20 16:00 02/15/20 16:00 02/15/20 16:00 02/15/20 16:00 Intake & Output 02/14/20 02/15/20 02/16/20 06:59 06:59 06:59 Intake Total 2727 4360 1120 Output Total 1280 960 450 Balance 1447 3400 670 Weight 92.6 kg 93.9 kg General appearance: PRESENT: no acute distress, cooperative, disheveled Respiratory exam: PRESENT: clear to auscultation loan, symmetrical, unlabored. ABSENT: accessory muscle use, chest wall tenderness, crackles, prolonged expiratory phas, rhonchi, tachypnea, wheezes Cardiovascular exam: PRESENT: RRR, +S1, +S2, systolic murmur Pulses: PRESENT: normal carotid pulses Vascular exam: PRESENT: normal capillary refill GI/Abdominal exam: PRESENT: normal bowel sounds, soft. ABSENT: distended, guarding, rebound, tenderness Extremities exam: PRESENT: pedal edema - Right foot. ABSENT: clubbing Musculoskeletal exam: PRESENT: normal inspection. ABSENT: deformity Neurological exam: PRESENT: alert, awake, oriented to person, oriented to place, oriented to situation Psychiatric exam: PRESENT: appropriate affect, normal mood Skin exam: PRESENT: dry, warm Results Laboratory Results: 02/15/20 04:34 02/15/20 04:34 02/15/20 02/15/20 02/15/20 04:34 04:34 05:45 WBC 8.5 RBC 3.39 L Hgb 10.0 L Hct 29.2 L MCV 86 MCH 29.5 MCHC 34.2 RDW 14.0 Plt Count 267 Sodium 137.9 Potassium 3.9 Chloride 106 Carbon Dioxide 26 Anion Gap 6 BUN 20 Creatinine 2.03 H Est GFR ( Amer) 43 L Glucose 118 H Calcium 8.7 Urine Color YELLOW Urine Appearance CLEAR Urine pH 6.0 Ur Specific [place] 1.011 Urine Protein 100 H Urine Glucose (UA) 50 H Urine Ketones NEGATIVE Urine Blood NEGATIVE Urine Nitrite NEGATIVE Ur Leukocyte Esterase NEGATIVE Urine WBC (Auto) 0 Urine RBC (Auto) 0 02/12/20 02/12/20 02/12/20 12:23 15:36 18:25 CK-MB (CK-2) 1.42 Troponin I 0.082 0.108 0.107 NT-Pro-B Natriuret Pep 02/12/20 02/13/20 02/13/20 21:57 05:14 09:43 CK-MB (CK-2) Troponin I 0.146 0.529 NT-Pro-B Natriuret Pep 1910 H 02/13/20 02/14/20 12:58 06:57 CK-MB (CK-2) Troponin I 0.555 0.464 NT-Pro-B Natriuret Pep Impressions: Chest X-Ray 02/12/20 12:12 IMPRESSION: NO ACUTE FINDINGS. Assessment and Plan - Diagnosis (1) GLYNN (acute kidney injury) Is this a current diagnosis for this admission?: Yes Plan: Creatinine is still elevated. Stable from yesterday. BUN to creatinine ratio is low. If this is acute, it is likely ATN. Probably related to his hypertension. The last time we had any data on his creatinine was from 3 years ago, and at that time it was normal. He may have developed some chronic kidney disease in the interim if his blood pressures have remained substantially elevated. Trying to keep him off of any medications that would insult the kidneys any further at this point until we know what his baseline is, but this may actually be his normal. (2) Gout Qualifiers: Gout site: foot Gout etiology: unspecified cause Chronicity: acute Laterality: right Qualified Code(s): M10.9 - Gout, unspecified Is this a current diagnosis for this admission?: Yes Plan: He has been on colchicine and has not really had much of an effect, and he says that in the past colchicine does not really work for him. We cannot put him on any NSAIDs right now because of his renal function. I am going to try him on some prednisone. (3) Hypertensive emergency Is this a current diagnosis for this admission?: Yes Plan: This has resolved. His blood pressures have improved substantially. (4) Tobacco abuse Is this a current diagnosis for this admission?: Yes Plan: Patient has a current every day smoker. He has been counseled regarding the multiple deleterious effects on his health and was encouraged to quit smoking immediately. (5) Type 2 myocardial infarction Is this a current diagnosis for this admission?: Yes Plan: From demand ischemia as a result of the high blood pressure. No chest pain. Troponins are trending down. (6) Diastolic dysfunction with heart failure Qualifiers: Heart failure chronicity: acute Qualified Code(s): I50.31 - Acute diastolic (congestive) heart failure Is this a current diagnosis for this admission?: Yes Plan: He had grade 2 diastolic dysfunction on his echocardiogram. He was never actually in heart failure, but the electronic record will not let me code this problem any other way. We will pursue aggressive blood pressure control. (7) Anemia Qualifiers: Anemia type: other cause Other causes of anemia: other cause, not classified Qualified Code(s): D64.89 - Other specified anemias Is this a current diagnosis for this admission?: Yes Plan: Dilutional anemia. Patient has been in a positive fluid balance every day. (8) Lower GI bleed Is this a current diagnosis for this admission?: Yes Plan: He said he had bright red blood per rectum when he was having some watery diarrhea. His Hemoccult was positive. Cardiology has recommended that he have this evaluated before they can proceed with any outpatient cardiac ischemic wo rk-up. I have consulted general surgery. We are going to bowel prep in this evening and plan to have the procedure done tomorrow. - Time Time Spent with patient: 25-34 minutes
--- NOTE | 2020-02-15 17:33 | Progress Note ---
Provider Note Provider Note: I was just informed by Dr. Segura that this patient will undergo inpatient GI evaluation for his lower GI bleed. The patient has remained hemodynamically stable since admission and without ischemic symptoms. He does not have an acute coronary syndrome. The patient may undergo GI evaluation without further cardiac work up.
--- NOTE | 2020-02-15 18:01 | PDOC CONSULTATION ---
Consultation Consult Date: 02/15/20 Attending physician:: TARAH HEARN Provider Consulted: MITUL TAPIA Consult reason:: lower gi bleed. History of Present Illness Admission Date/PCP: 02/12/20 17:42 History of Present Illness: TAYLOR MARCIAL is a 49 year old male Ms. Marcial is a 49-year-old male who was admitted to the hospital for hypertension noncompliant with medications CKD heavy smoker gouty arthritis he was noted in the emergency room to have very elevated blood pressures he was found to be anemic with a elevated proBNP of 1910 he reportedly has never had a colonoscopy. Because of his recent episodes of blood per rectum and heme positive stools noted anemia he is being evaluated for colonoscopy. He denies any history of hematemesis. Past Medical History Cardiac Medical History: Reports: Heart Murmur Denies: Hypertension Musculoskeltal Medical History: Reports: Gout Psychiatric Medical History: Denies: Depression Past Surgical History Past Surgical History: Reports: None Social History Smoking Status: Current Every Day Smoker Electronic Cigarette use?: No Frequency of Alcohol Use: Heavy Drugs: Marijuana - Advance Directive Resuscitation Status: Full Code Family History Family History: None, Reviewed & Not Pertinent Parental Family History Reviewed: No Children Family History Reviewed: NA Sibling(s) Family History Reviewed.: NA Medication/Allergy Home Medications: No Home Medications 02/13/20 Allergies/Adverse Reactions: No Known Allergies Allergy (Verified 02/12/20 12:08) Physical Exam Vital Signs: Temp Pulse Resp BP Pulse Ox 98.1 F 70 17 156/98 H 98 02/15/20 12:00 02/15/20 14:00 02/15/20 12:00 02/15/20 12:00 02/15/20 12:00 Intake & Output 02/14/20 02/15/20 02/16/20 06:59 06:59 06:59 Intake Total 2727 4360 120 Output Total 1280 960 450 Balance 1447 3400 -330 Weight 92.6 kg 93.9 kg General appearance: PRESENT: no acute distress Eye exam: PRESENT: EOMI Mouth exam: PRESENT: moist Neck exam: PRESENT: full ROM Respiratory exam: PRESENT: clear to auscultation loan Cardiovascular exam: PRESENT: RRR Pulses: PRESENT: normal radial pulses, normal femoral pulses Vascular exam: PRESENT: normal capillary refill Breast: PRESENT: Normal GI/Abdominal exam: PRESENT: soft Rectal exam: PRESENT: deferred, heme (+) stool Extremities exam: PRESENT: full ROM Musculoskeletal exam: PRESENT: full ROM Neurological exam: PRESENT: alert, awake, oriented to person, oriented to place Psychiatric exam: PRESENT: appropriate affect Skin exam: PRESENT: dry Results Laboratory Results: 02/15/20 04:34 02/15/20 04:34 02/15/20 02/15/20 02/15/20 04:34 04:34 05:45 WBC 8.5 RBC 3.39 L Hgb 10.0 L Hct 29.2 L MCV 86 MCH 29.5 MCHC 34.2 RDW 14.0 Plt Count 267 Sodium 137.9 Potassium 3.9 Chloride 106 Carbon Dioxide 26 Anion Gap 6 BUN 20 Creatinine 2.03 H Est GFR ( Amer) 43 L Glucose 118 H Calcium 8.7 Urine Color YELLOW Urine Appearance CLEAR Urine pH 6.0 Ur Specific [place] 1.011 Urine Protein 100 H Urine Glucose (UA) 50 H Urine Ketones NEGATIVE Urine Blood NEGATIVE Urine Nitrite NEGATIVE Ur Leukocyte Esterase NEGATIVE Urine WBC (Auto) 0 Urine RBC (Auto) 0 02/12/20 02/12/20 02/12/20 12:23 15:36 18:25 CK-MB (CK-2) 1.42 Troponin I 0.082 0.108 0.107 NT-Pro-B Natriuret Pep 02/12/20 02/13/20 02/13/20 21:57 05:14 09:43 CK-MB (CK-2) Troponin I 0.146 0.529 NT-Pro-B Natriuret Pep 1910 H 02/13/20 02/14/20 12:58 06:57 CK-MB (CK-2) Troponin I 0.555 0.464 NT-Pro-B Natriuret Pep Impressions: Chest X-Ray 02/12/20 12:12 IMPRESSION: NO ACUTE FINDINGS. Assessment & Plan - Plan Summary Plan Summary: plan colonoscopy will need to check covid prior to surgery and cardiology to clear for sugery .
[2020-02-15 19:00] LABS: APPEARANCE,URINE CLEAR; BILIRUBIN,URINE NEGATIVE (NEGATIVE); COLOR,URINE COLORLESS; GLUCOSE, URINE NEGATIVE (NEGATIVE); KETONES,URINE NEGATIVE (NEGATIVE); LEUKOCYTE ESTERASE,URINE NEGATIVE (NEGATIVE); NITRITE,URINE NEGATIVE (NEGATIVE); PROTEIN,URINE 30 mg/dL (NEGATIVE); URINE SPECIFIC GRAVITY 1.005; UROBILINOGEN,URINE NEGATIVE mg/dL (<2.0)
[2020-02-15] MEDS ORDERED: PEG 3350/NA SULF,BICARB,CL/KCL 4000 ML PO ONE (19:00)
[2020-02-15] MEDS: ATORVASTATIN CALCIUM 10 MG TABLET PO SCH (21:09)
[2020-02-16] MEDS: HEPARIN SOD (PORCINE) 5,000 UNIT/ML 1 ML VIAL SUBCUT SCH ×3 (06:39→21:15)
[2020-02-16] MEDS: PANTOPRAZOLE SODIUM 40 MG TABLET.DR PO SCH (09:14)
[2020-02-16] MEDS: PREDNISONE 20 MG TABLET PO SCH (09:14)
[2020-02-16] MEDS: ASPIRIN 81 MG TABLET, ENT COATED PO SCH (09:14)
[2020-02-16] MEDS: CARVEDILOL 12.5 MG TABLET PO SCH ×2 (09:15→21:19)
[2020-02-16] MEDS: AMLODIPINE BESYLATE 10 MG TABLET PO SCH (09:15)
[2020-02-16] MEDS: NORMAL SALINE 1000 ML 1,000 ML IV PRN (09:17)
[2020-02-16] MEDS ORDERED: PROPOFOL INJ 200 MG/20 ML VIAL IV ONE (11:47)
--- NOTE | 2020-02-16 13:35 | Operative Report ---
Nonrecallable Operative Report DATE OF SURGERY: 02/16/20 PREOPERATIVE DIAGNOSIS: Rectal bleeding POSTOPERATIVE DIAGNOSIS: 1. Small polyp in the hepatic flexure. 2. Large polyp (greater than 2 cm) at 40 cm. 3. Smaller polyp at 40 cm. 4. Large polyp (greater than 2 cm) at 30 cm. OPERATION: Colonoscopy with snare polypectomy of multiple polyps. SURGEON: NANCI POPE ANESTHESIA: GA TISSUE REMOVED OR ALTERED: 1. Hepatic flexure polyp. 2. Large polyp at 40 cm. 3. Smaller polyp at 40 cm. 4. Large polyp at 30 cm. COMPLICATIONS: None apparent ESTIMATED BLOOD LOSS: Minimal PROCEDURE: Drains/implants: None. Procedure in detail: After informed consent was obtained, the patient was brought to the operating room and laid in the left lateral decubitus position. The endoscope was inserted into the rectum. The scope was passed up the rectum, sigmoid colon, descending colon, across the transverse colon, down the ascending colon, and into the cecum. The ileocecal valve and appendiceal orifice were identified. The scope was then withdrawn, circumferentially noting the mucosa. The prep was good. The scope was withdrawn past the ascending colon, and into the hepatic flexure. In the hepatic flexure a small polyp was identified, and removed via snare polypectomy. The scope was then withdrawn through the transverse colon, and into the descending colon. At 40 cm a very large, greater than 2 cm pedunculated polyp, was identified. This was removed via snare polypectomy. There was some bleeding at the stalk after polypectomy. Cautery was used to coagulate and halt the bleeding. Another small polyp was identified adjacent to the larger polyp. This was also removed via snare polypectomy. The scope was pulled down into the sigmoid colon. At 30 cm another large, greater than 2 cm pedunculated polyp was identified. This was also removed via snare polypectomy. The scope was then withdrawn into the rectum. A retroflexion maneuver was performed, noting no internal hemorrhoids. The scope was straightened, air was suctioned from the rectum, the scope was removed, and the procedure was concluded. All sponge, instrument, and needle counts were correct. Condition: Stable.
--- NOTE | 2020-02-16 13:36 | PDOC PROGRESS REPORT ---
Subjective Progress Note for:: 02/16/20 Subjective:: 49-year-old male with hematochezia and anemia. He was also worked up for chest pain. He denies any chest pain or shortness of breath at present. He denies abdominal pain, nausea, vomiting, dizziness, blurry vision, orthostasis, fatigue, malaise, headache. Reason For Visit: HYPERTENSIVE EMERGENCY/NONSTEMI Physical Exam Vital Signs: Temp Pulse Resp BP Pulse Ox 98.4 F 66 18 143/88 H 100 02/16/20 08:00 02/16/20 08:00 02/16/20 08:00 02/16/20 08:00 02/16/20 08:00 Intake & Output 02/15/20 02/16/20 02/17/20 06:59 06:59 06:59 Intake Total 4360 2610 Output Total 960 450 Balance 3400 2160 Weight 93.9 kg 92.8 kg General appearance: PRESENT: no acute distress, cooperative Head exam: PRESENT: atraumatic, normocephalic Eye exam: PRESENT: EOMI, PERRLA. ABSENT: scleral icterus Mouth exam: PRESENT: moist, neck supple Neck exam: ABSENT: meningismus, tenderness, thyromegaly, tracheal deviation Respiratory exam: PRESENT: unlabored. ABSENT: tachypnea, wheezes Cardiovascular exam: ABSENT: tachycardia GI/Abdominal exam: PRESENT: soft. ABSENT: ascites, distended, rigid, tenderness Extremities exam: ABSENT: clubbing Musculoskeletal exam: ABSENT: deformity Neurological exam: PRESENT: alert, awake Psychiatric exam: ABSENT: agitated, anxious, depressed Focused psych exam: ABSENT: delusional Skin exam: ABSENT: cyanosis, erythema, jaundice Results Laboratory Results: 02/15/20 04:34 02/15/20 04:34 02/15/20 18:30 Urine Color COLORLESS Urine Appearance CLEAR Urine pH 8.0 Ur Specific [place] 1.005 Urine Protein 30 H Urine Glucose (UA) NEGATIVE Urine Ketones NEGATIVE Urine Blood NEGATIVE Urine Nitrite NEGATIVE Ur Leukocyte Esterase NEGATIVE Urine WBC (Auto) 0 Urine RBC (Auto) 0 02/12/20 02/12/20 02/12/20 12:23 15:36 18:25 CK-MB (CK-2) 1.42 Troponin I 0.082 0.108 0.107 NT-Pro-B Natriuret Pep 02/12/20 02/13/20 02/13/20 21:57 05:14 09:43 CK-MB (CK-2) Troponin I 0.146 0.529 NT-Pro-B Natriuret Pep 1910 H 02/13/20 02/14/20 12:58 06:57 CK-MB (CK-2) Troponin I 0.555 0.464 NT-Pro-B Natriuret Pep Impressions: Chest X-Ray 02/12/20 12:12 IMPRESSION: NO ACUTE FINDINGS. Assessment & Plan - Diagnosis (1) Lower GI bleed Is this a current diagnosis for this admission?: Yes - Plan Summary Plan Summary: 49-year-old male with a history of rectal bleeding. Plan for colonoscopy today. Risks/benefits discussed, informed consent obtained, and all questions answered.
--- NOTE | 2020-02-16 16:15 | PDOC PROGRESS REPORT ---
Subjective Progress Note for:: 02/16/20 Subjective:: No adverse events overnight. No new complaints. He says that his foot is feeling better and it still hurts some but he can bear weight on it and walk a little bit. When I saw him this morning he was n.p.o. awaiting his colonoscopy. Reason For Visit: HYPERTENSIVE EMERGENCY/NONSTEMI Physical Exam Vital Signs: Temp Pulse Resp BP Pulse Ox 97.5 F 75 18 136/80 H 97 02/16/20 14:47 02/16/20 14:47 02/16/20 14:47 02/16/20 14:47 02/16/20 14:47 Intake & Output 02/15/20 02/16/20 02/17/20 06:59 06:59 06:59 Intake Total 4360 2610 660 Output Total 960 450 200 Balance 3400 2160 460 Weight 93.9 kg 92.8 kg General appearance: PRESENT: no acute distress, cooperative, disheveled Respiratory exam: PRESENT: clear to auscultation loan, symmetrical, unlabored. ABSENT: accessory muscle use, chest wall tenderness, crackles, prolonged expiratory phas, rhonchi, tachypnea, wheezes Cardiovascular exam: PRESENT: RRR, +S1, +S2, systolic murmur Pulses: PRESENT: normal carotid pulses Vascular exam: PRESENT: normal capillary refill GI/Abdominal exam: PRESENT: normal bowel sounds, soft. ABSENT: distended, guarding, rebound, tenderness Extremities exam: PRESENT: pedal edema - Right foot. ABSENT: clubbing Musculoskeletal exam: PRESENT: normal inspection. ABSENT: deformity Neurological exam: PRESENT: alert, awake, oriented to person, oriented to place, oriented to situation Psychiatric exam: PRESENT: appropriate affect, normal mood Skin exam: PRESENT: dry, warm Results Laboratory Results: 02/15/20 04:34 02/15/20 04:34 02/15/20 18:30 Urine Color COLORLESS Urine Appearance CLEAR Urine pH 8.0 Ur Specific [place] 1.005 Urine Protein 30 H Urine Glucose (UA) NEGATIVE Urine Ketones NEGATIVE Urine Blood NEGATIVE Urine Nitrite NEGATIVE Ur Leukocyte Esterase NEGATIVE Urine WBC (Auto) 0 Urine RBC (Auto) 0 02/12/20 02/12/20 02/12/20 12:23 15:36 18:25 CK-MB (CK-2) 1.42 Troponin I 0.082 0.108 0.107 NT-Pro-B Natriuret Pep 02/12/20 02/13/20 02/13/20 21:57 05:14 09:43 CK-MB (CK-2) Troponin I 0.146 0.529 NT-Pro-B Natriuret Pep 1910 H 02/13/20 02/14/20 12:58 06:57 CK-MB (CK-2) Troponin I 0.555 0.464 NT-Pro-B Natriuret Pep Impressions: Chest X-Ray 02/12/20 12:12 IMPRESSION: NO ACUTE FINDINGS. Assessment and Plan - Diagnosis (1) GLYNN (acute kidney injury) Is this a current diagnosis for this admission?: Yes Plan: Creatinine is still elevated but stable. BUN to creatinine ratio is low. If this is acute, it is likely ATN. Probably related to his hypertension. The last time we had any data on his creatinine was from 3 years ago, and at that time it was normal. He may have developed some chronic kidney disease in the interim if his blood pressures have remained substantially elevated. Trying to keep him off of any medications that would insult the kidneys any further at this point until we know what his baseline is, but this may actually be his normal. (2) Gout Qualifiers: Gout site: foot Gout etiology: unspecified cause Chronicity: acute Laterality: right Qualified Code(s): M10.9 - Gout, unspecified Is this a current diagnosis for this admission?: Yes Plan: He seems to be responding to prednisone. He said he has done better in the past with indomethacin and has not really responded to colchicine. Giving him prednisone because of his renal function. We will send him home on a course of prednisone. (3) Hypertensive emergency Is this a current diagnosis for this admission?: Yes Plan: This has resolved. His blood pressures have improved substantially. (4) Tobacco abuse Is this a current diagnosis for this admission?: Yes Plan: Patient has a current every day smoker. He has been counseled regarding the multiple deleterious effects on his health and was encouraged to quit smoking immediately. (5) Type 2 myocardial infarction Is this a current diagnosis for this admission?: Yes Plan: From demand ischemia as a result of the high blood pressure. No chest pain. Troponins are trending down. (6) Diastolic dysfunction with heart failure Qualifiers: Heart failure chronicity: acute Qualified Code(s): I50.31 - Acute diastolic (congestive) heart failure Is this a current diagnosis for this admission?: Yes Plan: He had grade 2 diastolic dysfunction on his echocardiogram. He was never actually in heart failure, but the electronic record will not let me code this problem any other way. We will pursue aggressive blood pressure control. (7) Anemia Qualifiers: Anemia type: other cause Other causes of anemia: other cause, not classified Qualified Code(s): D64.89 - Other specified anemias Is this a current diagnosis for this admission?: Yes Plan: Dilutional anemia. Patient has been in a positive fluid balance every day. (8) Lower GI bleed Is this a current diagnosis for this admission?: Yes Plan: He been having some diarrhea and likely 1 or more of those polyps were bleeding. He had 4 polyps removed during his colonoscopy today. We will monitor him overnight we will likely send him home tomorrow morning if he does not have any bleeding. - Time Time Spent with patient: 25-34 minutes
[2020-02-16] MEDS: ATORVASTATIN CALCIUM 10 MG TABLET PO SCH (21:19)
[2020-02-17] MEDS: HEPARIN SOD (PORCINE) 5,000 UNIT/ML 1 ML VIAL SUBCUT SCH ×2 (05:12→14:12)
[2020-02-17] MEDS: NORMAL SALINE 1000 ML 1,000 ML IV PRN (05:17)
[2020-02-17 05:24] LABS: HEMOGLOBIN 10.7 g/dL (13.5-17.0); MEAN CORPUSCULAR HEMOGLOBIN 28.6 pg (27.0-33.4); MEAN CORPUSCULAR HGB CONC 33.6 g/dL (32.0-36.0); MEAN CORPUSCULAR VOLUME 85 fl (80-97); PLATELET COUNT 342 10^3/uL (150-450); RED BLOOD COUNT 3.74 10^6/uL (4.35-5.55); RED CELL DISTRIBUTION WIDTH 13.8 % (11.5-14.0); WHITE BLOOD COUNT 7.7 10^3/uL (4.0-10.5)
[2020-02-17 08:48] VITALS: BP 152/92
[2020-02-17] MEDS: ASPIRIN 81 MG TABLET, ENT COATED PO SCH (09:21)
[2020-02-17] MEDS: PANTOPRAZOLE SODIUM 40 MG TABLET.DR PO SCH (09:21)
[2020-02-17] MEDS: PREDNISONE 20 MG TABLET PO SCH (09:21)
[2020-02-17] MEDS: CARVEDILOL 12.5 MG TABLET PO SCH (09:21)
[2020-02-17] MEDS: AMLODIPINE BESYLATE 10 MG TABLET PO SCH (09:22)
--- NOTE | 2020-02-17 14:52 | PDOC DISCHARGE SUMMARY ---
Impression - Admit/DC Date/PCP Admission Date/Primary Care Provider: 02/12/20 17:42 Discharge Date: 02/17/20 - Discharge Diagnosis (1) GLYNN (acute kidney injury) Is this a current diagnosis for this admission?: Yes (2) Gout Is this a current diagnosis for this admission?: Yes (3) Hypertensive emergency Is this a current diagnosis for this admission?: Yes (4) Tobacco abuse Is this a current diagnosis for this admission?: Yes (5) Type 2 myocardial infarction Is this a current diagnosis for this admission?: Yes (6) Diastolic dysfunction with heart failure Is this a current diagnosis for this admission?: Yes (7) Anemia Is this a current diagnosis for this admission?: Yes (8) Lower GI bleed Is this a current diagnosis for this admission?: Yes - Additional Information Resuscitation Status: Full Code Discharge Diet: Cardiac Discharge Activity: Activity As Tolerated, Balance Activity w/Rest Referrals: [facility] [Provider Group] - 02/22/20 10:30 am TYLER ASIF MD [ACTIVE PROVISIONAL STAFF] - 02/27/20 8:30 am Prescriptions: Carvedilol [Coreg 12.5 mg Tablet] 12.5 mg PO Q12 #60 tablet Prednisone [Deltasone 10 mg Tablet] 10 mg PO ASDIR PRN #30 tablet PRN Reason: Atorvastatin Calcium [Lipitor 10 mg Tablet] 10 mg PO QHS #30 tablet Amlodipine Besylate [Norvasc 10 mg Tablet] 10 mg PO DAILY #30 tablet Home Medications: Amlodipine Besylate [Norvasc 10 mg Tablet] 10 mg PO DAILY #30 tablet 02/17/20 Aspirin [Ecotrin 81 mg EC Tablet] 81 mg PO DAILY tabec 02/17/20 Atorvastatin Calcium [Lipitor 10 mg Tablet] 10 mg PO QHS #30 tablet 02/17/20 Carvedilol [Coreg 12.5 mg Tablet] 12.5 mg PO Q12 #60 tablet 02/17/20 Prednisone [Deltasone 10 mg Tablet] 10 mg PO ASDIR PRN #30 tablet 02/17/20 History of Present Illiness History of Present Illness: TAYLOR RAMESH is a 49 year old male with history of hypertension noncompliant with medications, gout taking Tylenol came to the emergency room with complaints of right foot pain for the last 1 week. He is not sure the last time he took his medications. In the emergency room he also told the ER physician about passing dark-colored urine and passing slight blood in the stool. But he denied those problems to me. Denies any chest pain at all. Denies any nausea vomiting or abdominal pains. Denies any headaches dizzy spells. Denies any shortness of breath. Case was discussed by ER physician with Dr. Hamilton his recommendation is to place the patient in this hospital for further management. Patient received 2 doses of 10 mg of IV hydralazine in the emergency room latest systolic blood pressure is more than 200. I requested the nurse to give another 10 mg IV hydralazine. To give amlodipine 10 mg now and to place him on Nitropaste and started on IV hydralazine 10 mg every 6 as needed for systolic blood pressure more than 170. Started on IV morphine to help with the pain may be the pain is giving the high blood pressures. Discussed about the troponin with the patient he agreed to stay in the hospital for further management. Also told him if the troponin is trending up there is a possibility that he may be tr ansferred to another facility. He agreed with the plan. He admitted to smoking weed but denies any drug use. He is a daily smoker. Also drinks sixpack every other day. Hospital Course Hospital Course: He showed up complaining of right foot pain, mild up disclosing to someone that he had been having some watery stools for about a week with some blood in them, and we found his blood pressure was substantially elevated. Turns out that his foot was inflamed from gout. His creatinine was also elevated. He normally takes indomethacin whenever his gout flares up, but because his creatinine was elevated we did not do that this time. The last set of labs we had on him was over 3 years ago, and he was not on any medications at home. With his blood p ressure being elevated, I suspect that his renal function is a direct result of uncontrolled hypertension. His creatinine remained around 2 at baseline. We tried him on colchicine but he did not respond to that after a few days of treatment so I switched him to prednisone and he has had a good improvement after couple of days of that. I have put him on a 12-day taper because of the high probability of relapse after a short burst. We put him on a couple different medications and his blood pressure control has improved. He has a follow-up visit with his doctor in [place] on Thursday. He is going to eventually follow-up with cardiology for outpatient cardiac ischemic work-up, but they wanted his GI bleeding evaluated first. He had 4 polyps removed on colonoscopy. This was likely the source of his bleeding. He is going to follow-up with general surgery in the outpatient for pathology results and to set up another surveillance colonoscopy in 1 to 2 years. It was strongly recommended that he quit smoking. His labs and examination were reassuring and he was discharged in stable condition. Physical Exam Vital Signs: Temp Pulse Resp BP Pulse Ox 97.8 F 66 18 152/92 H 98 02/17/20 12:14 02/17/20 12:14 02/17/20 12:14 02/17/20 12:14 02/17/20 12:14 Intake & Output 02/16/20 02/17/20 02/18/20 06:59 06:59 06:59 Intake Total 2610 2596 620 Output Total 450 200 Balance 2160 2396 620 Weight 92.8 kg 93.8 kg General appearance: PRESENT: no acute distress, cooperative, disheveled Respiratory exam: PRESENT: clear to auscultation loan, symmetrical, unlabored. ABSENT: accessory muscle use, chest wall tenderness, crackles, prolonged expiratory phas, rhonchi, tachypnea, wheezes Cardiovascular exam: PRESENT: RRR, +S1, +S2, systolic murmur Pulses: PRESENT: normal carotid pulses Vascular exam: PRESENT: normal capillary refill GI/Abdominal exam: PRESENT: normal bowel sounds, soft. ABSENT: distended, guarding, rebound, tenderness Extremities exam: PRESENT: pedal edema - Right foot. ABSENT: clubbing Musculoskeletal exam: PRESENT: normal inspection. ABSENT: deformity Neurological exam: PRESENT: alert, awake, oriented to person, oriented to place, oriented to situation Psychiatric exam: PRESENT: appropriate affect, normal mood Skin exam: PRESENT: dry, warm Results Laboratory Results: WBC 7.7 10^3/uL (4.0-10.5) 02/17/20 04:37 RBC 3.74 10^6/uL (4.35-5.55) L 02/17/20 04:37 Hgb 10.7 g/dL (13.5-17.0) L 02/17/20 04:37 Hct 32.0 % (37.9-51.0) L 02/17/20 04:37 MCV 85 fl (80-97) 02/17/20 04:37 MCH 28.6 pg (27.0-33.4) 02/17/20 04:37 MCHC 33.6 g/dL (32.0-36.0) 02/17/20 04:37 RDW 13.8 % (11.5-14.0) 02/17/20 04:37 Plt Count 342 10^3/uL (150-450) 02/17/20 04:37 Lymph % (Auto) 31.9 % (13-45) 02/14/20 04:51 [place] % (Auto) 9.5 % (3-13) 02/14/20 04:51 Eos % (Auto) 1.7 % (0-6) 02/14/20 04:51 Baso % (Auto) 0.5 % (0-2) 02/14/20 04:51 Absolute Neuts (auto) 4.8 10^3/uL (1.7-8.2) 02/14/20 04:51 Absolute Lymphs (auto) 2.7 10^3/uL (0.5-4.7) 02/14/20 04:51 Absolute Monos (auto) 0.8 10^3/uL (0.1-1.4) 02/14/20 04:51 Absolute Eos (auto) 0.1 10^3/uL (0.0-0.6) 02/14/20 04:51 Absolute Basos (auto) 0.0 10^3/uL (0.0-0.2) 02/14/20 04:51 Seg Neutrophils % 56.4 % (42-78) 02/14/20 04:51 ESR 63 mm/hr (0-15) H 02/12/20 12:23 Sodium 137.9 mmol/L (137-145) 02/15/20 04:34 Potassium 3.9 mmol/L (3.6-5.0) 02/15/20 04:34 Chloride 106 mmol/L (98-107) 02/15/20 04:34 Carbon Dioxide 26 mmol/L (22-30) 02/15/20 04:34 Anion Gap 6 (5-19) 02/15/20 04:34 BUN 20 mg/dL (7-20) 02/15/20 04:34 Creatinine 2.03 mg/dL (0.52-1.25) H 02/15/20 04:34 Est GFR ( Amer) 43 (>60) L 02/15/20 04:34 Est GFR (MDRD) Non-Af 35 (>60) L 02/15/20 04:34 Glucose 118 mg/dL (75-110) H 02/15/20 04:34 Hemoglobin A1c % 5.5 % (4.7-6.0) 02/13/20 05:14 Uric Acid 7.2 mg/dL (3.5-8.5) 02/12/20 18:25 Calcium 8.7 mg/dL (8.4-10.2) 02/15/20 04:34 Magnesium 2.2 mg/dL (1.6-2.3) 02/14/20 04:51 Total Bilirubin 0.3 mg/dL (0.2-1.3) 02/14/20 04:51 Direct Bilirubin 0.0 mg/dL (0.0-0.4) 02/14/20 04:51 Neonat Total Bilirubin Not Reportable 02/14/20 04:51 Neonat Direct Bilirubin Not Reportable 02/14/20 04:51 Neonat Indirect Bili Not Reportable 02/14/20 04:51 AST 20 U/L (17-59) 02/14/20 04:51 ALT 17 U/L (<50) 02/14/20 04:51 Alkaline Phosphatase 61 U/L (38-126) 02/14/20 04:51 CK-MB (CK-2) 1.42 ng/mL (<4.55) 02/12/20 18:25 Troponin I 0.464 ng/mL 02/14/20 06:57 C-Reactive Protein 19.7 mg/L (<10.0) H 02/12/20 12:23 NT-Pro-B Natriuret Pep 1910 pg/mL (<125) H 02/13/20 05:14 Total Protein 5.7 g/dL (6.3-8.2) L 02/14/20 04:51 Albumin 2.9 g/dL (3.5-5.0) L 02/14/20 04:51 Triglycerides 184 mg/dL (<150) H 02/12/20 18:25 Cholesterol 192.12 mg/dL (0-200) 02/12/20 18:25 LDL Cholesterol Direct 129 mg/dL (<100) H 02/12/20 18:25 VLDL Cholesterol 36.8 mg/dL (10-31) H 02/12/20 18:25 HDL Cholesterol 41 mg/dL (>40) 02/12/20 18:25 Urine Color COLORLESS 02/15/20 18:30 Urine Appearance CLEAR 02/15/20 18:30 Urine pH 8.0 (5.0-9.0) 02/15/20 18:30 Ur Specific [place] 1.005 02/15/20 18:30 Urine Protein 30 mg/dL (NEGATIVE) H 02/15/20 18:30 Urine Glucose (UA) NEGATIVE mg/dL (NEGATIVE) 02/15/20 18:30 Urine Ketones NEGATIVE mg/dL (NEGATIVE) 02/15/20 18:30 Urine Blood NEGATIVE (NEGATIVE) 02/15/20 18:30 Urine Nitrite NEGATIVE (NEGATIVE) 02/15/20 18:30 Urine Bilirubin NEGATIVE (NEGATIVE) 02/15/20 18:30 Urine Urobilinogen NEGATIVE mg/dL (<2.0) 02/15/20 18:30 Ur Leukocyte Esterase NEGATIVE (NEGATIVE) 02/15/20 18:30 Urine WBC (Auto) 0 /HPF 02/15/20 18:30 Urine RBC (Auto) 0 /HPF 02/15/20 18:30 U Hyaline Cast (Auto) 1 /LPF 02/13/20 18:00 Squamous Epi Cells Auto <1 /HPF 02/15/20 18:30 Urine Mucus (Auto) RARE /LPF 02/15/20 18:30 Urine Ascorbic Acid NEGATIVE (NEGATIVE) 02/15/20 18:30 POC Stool Occult Blood POSITIVE (NEGATIVE) 02/12/20 17:45 Urine Opiates Screen NEGATIVE 02/12/20 15:22 Urine Methadone Screen NEGATIVE 02/12/20 15:22 Ur Barbiturates Screen NEGATIVE 02/12/20 15:22 Ur Phencyclidine Scrn NEGATIVE 02/12/20 15:22 Ur Amphetamines Screen NEGATIVE 02/12/20 15:22 U Benzodiazepines Scrn NEGATIVE 02/12/20 15:22 Urine Cocaine Screen NEGATIVE 02/12/20 15:22 U Marijuana (THC) Screen NEGATIVE 02/12/20 15:22 Serum Alcohol < 10 mg/dL (NONE DETECTED) 02/12/20 18:25 SARS-CoV-2 (PCR) NEGATIVE (NEGATIVE) 02/16/20 00:35 02/12/20 02/12/20 02/12/20 12:23 15:36 18:25 CK-MB (CK-2) 1.42 Troponin I 0.082 0.108 0.107 NT-Pro-B Natriuret Pep 02/12/20 02/13/20 02/13/20 21:57 05:14 09:43 CK-MB (CK-2) Troponin I 0.146 0.529 NT-Pro-B Natriuret Pep 1910 H 02/13/20 02/14/20 12:58 06:57 CK-MB (CK-2) Troponin I 0.555 0.464 NT-Pro-B Natriuret Pep Impressions: Chest X-Ray 02/12/20 12:12 IMPRESSION: NO ACUTE FINDINGS. Plan Time Spent: Greater than 30 Minutes Stroke Is this a Stroke Patient?: No Acute Heart Failure - Is this a Heart Failure Patient?: No
== END 2020-02-17 13:30 | disposition home or self-care (01) | DRG 281 ==
LOC: ER 11:31 → EH 17:42 → 4N 23:40
PROVIDERS: ADMIT Internal Medicine; ATTEND Family Medicine
PROC: 0DBE4ZX Excision of Large Intestine, Percutaneous Endoscopic Approach, Diagnostic (ICD-10-PCS; 2020-02-16)
PROC: 0DBL4ZX Excision of Transverse Colon, Percutaneous Endoscopic Approach, Diagnostic (ICD-10-PCS; principal; 2020-02-16 13:15)
DX: I16.1 Hypertensive emergency (principal); I21.A1 Myocardial infarction type 2; N17.9 Acute kidney failure, unspecified; K92.1 Melena; I50.30 Unspecified diastolic (congestive) heart failure; I13.0 Hypertensive heart and chronic kidney disease with heart failure and stage 1 through stage 4 chronic kidney disease, or unspecified chronic kidney disease; M10.071 Idiopathic gout, right ankle and foot; K63.5 Polyp of colon; D50.0 Iron deficiency anemia secondary to blood loss (chronic); T46.5X6A Underdosing of other antihypertensive drugs, initial encounter; Z91.128 Patient's intentional underdosing of medication regimen for other reason; N18.9 Chronic kidney disease, unspecified; F12.90 Cannabis use, unspecified, uncomplicated; F17.210 Nicotine dependence, cigarettes, uncomplicated; Z82.49 Family history of ischemic heart disease and other diseases of the circulatory system; Z20.828 Contact with and (suspected) exposure to other viral communicable diseases
CPT/HCPCS: 36415; 45385; 71046; 80048; 80053; 80061; 80307; 81001; 811; 82270; 82553; 83036; 83735; 83880; 84484; 84550; 85025; 85027; 85652; 86140; 87635; 88305; 93005; 93010; 93306; 96361; 96374; 96376; 99284; C9803; J0360; J1644; J1650; J2270; J2704; J3490; J7030; J7512